=== PATIENT | female | born 1950 | race Caucasian/White ===

== ENCOUNTER 2016-12-22 12:16 | Emergency (ER) | payer OTHER ==
[~2016-12-22 12:16] MED LIST: /ACETCOD2T PO; /METO25TA PO; /SENOSTA PO; /WARF5TA PO; ALLO300T OR; ALLO300T2 PO; ASPI81TA85 PO; ATEN100T OR; ATOR1TAB21 PO; BUME2TAB PO; CALC0.5C OR; CALC1CAP31 PO; CORE25TA OR; CORE25TA PO; COUM1TAB17 PO; COUM2.5T11 PO; DIGO0.126 OR; DOCU10CA PO; DOCU10ELUD PO; DOXY-197 PO; HYDR-4267 PO; HYDR50TA PO; LASI20TA OR; LASI40TA OR; LASI40TA PO; LASI80TA OR; LIPI10TA OR; LOPR100T OR; LOVE1INJ SC; METO100T PO; PERCOCET PO; PRADAXA; PRED1TAB32 PO; SPIR25TA2 OR; TORS100T12 PO; TYLE325T5 PO; ULTR37.52 PO; VITAMIN D50000 UNT OR; ZARO2.5T OR; ZEST2.5T OR; ZETI10TA OR; ZETI10TA2 PO; nystatin powder; pradaxa PO; vit d PO
[2016-12-22 12:50] LABS: BASO % 0.3 % (0.0-1.0); EOS # 0.2 K/mm3 (0.0-0.50); EOS % 2.3 % (0.0-3.0); LARGE UNSTAINED CELL # 0.1 K/mm3 (0.0-0.4); LARGE UNSTAINED CELL % 1.2 % (0.0-4.0); LYMPH # 1.5 K/mm3 (1.5-4.5); LYMPH % 18.2 % (24.0-44.0); MEAN CORPUSCULAR HEMOGLOBIN 29.1 pg (27.0-33.0); MEAN CORPUSCULAR HGB CONC 32.7 g/dl (32.0-36.5); MEAN CORPUSCULAR VOLUME 89.2 fl (80.0-96.0); MONO # 0.4 K/mm3 (0.0-0.8); MONO % 4.7 % (0.0-5.0); NEUTROPHILS # 5.8 K/mm3 (1.8-7.7); NEUTROPHILS % 73.4 % (36.0-66.0); PLATELET COUNT, AUTOMATED 250 k/mm3 (150-450); RED CELL DISTRIBUTION WIDTH 14.7 % (11.5-14.5); WHITE BLOOD COUNT 7.9 K/mm3 (4.0-10.0)
[2016-12-22 13:21] LABS: ANION GAP 6 MEQ/L (8-16); BLOOD UREA NITROGEN 30 MG/DL (7-18); CARBON DIOXIDE LEVEL 29 MEQ/L (21-32); CHLORIDE LEVEL 105 MEQ/L (98-107); CREATININE FOR GFR 1.61 MG/DL (0.55-1.02); GLOMERULAR FILTRATION RATE 34.3 (>45); GLUCOSE, FASTING 104 MG/DL (80-110); POTASSIUM SERUM 4.1 MEQ/L (3.5-5.1); SODIUM LEVEL 140 MEQ/L (136-145)
[2016-12-22] MEDS ORDERED: MORPHINE 4 MG/ML 1ML SYRINGE As Ordered ONE (13:53)
[2016-12-22] MEDS ORDERED: ONDANSETRON 4MG/2ML VIAL (J2405) As Ordered ONE (13:53)
[2016-12-22] MEDS ORDERED: ASPIRIN 81 MG CHEW TABLET As Ordered ONE (13:53)
--- NOTE | 2016-12-22 14:00 | REP ---
Chest x-ray: Two views. History: Chest pain. Comparison study November 13, 2015. Findings: Moderate cardiomegaly is observed. Heart size is unchanged. The pulmonary vasculature is cephalized. Pleural angles are sharp. No evidence of pulmonary edema or pleural effusion seen. No infiltrate seen. Impression: Cardiomegaly with cephalized pulmonary vasculature consistent with mild CHF. No evidence of pulmonary edema or pleural effusion seen. Signed by Mega Echols MD 12/22/2016 02:35 P
--- NOTE | 2016-12-22 15:07 | REP ---
BILATERAL LOWER EXTREMITY DOPPLER VENOUS ULTRASOUND: Comparison: Right lower extremity of 11/18/2016, 12/26/2014. Technique: The deep venous system of the bilateral lower extremities is evaluated with kerr scale imaging, compression ultrasound, color imaging and duplex Doppler interrogation. Examination from the groin through the popliteal fossa into the proximal calf. Findings: There is full compressibility from the common femoral vein in the inguinal region through the popliteal vein on both sides. Color imaging confirms patency throughout the course of the deep venous system. There is respiratory variation and augmented flow at all levels. Impression: 1. No Doppler venous ultrasound evidence of DVT in the bilateral lower extremities. The exam was technically limited due to body habitus. Signed by Surya Chang MD 12/22/2016 04:28 P
[2016-12-22] MEDS ORDERED: FUROSEMIDE 40 MG/4 ML VIAL (J1940) As Ordered ONE (15:52)
--- NOTE | 2016-12-22 17:40 | EDDOCDS ---
Nurse's Notes [facility] Name: Odessa Ramos Age: 66 yrs Sex: Female : 1950 Arrival Date: 12/22/2016 Time: 12:16 Bed 17 Private MD: Peggy Irene Diagnosis: Chest pain, unspecified;Acute combined systolic (congestive) and diastolic (congestive) heart failure Presentation: 12/22 12:20 Presenting complaint: Patient states: states substernal chest pain radiating to back ml6 10, denies SOB. Aspirin was not taken prior to arrival. Adult Sepsis Screening: The patient does not have new or worsening altered mentation. Patient's respiratory rate is less than 22. Systolic blood pressure is greater than 100. Patient has a qSOFA score of 0- Negative Sepsis Screen. Suicide/Homicide risk assessment- the patient denies having any suicidal and/or homicidal ideations and does not present with any other emotional, behavioral or mental health complaints. Status: Patient is not a customer services supervisor or dependent. Transition of care: patient was not received from another setting of care. Red Flag criteria, patient assessed and taken directly to a bed. 12:20 Acuity: BRIANDA Level 2 ml6 12:20 Method Of Arrival: Walkin/Carried/Asstd ml6 Triage Assessment: 12:31 General: Appears in no apparent distress, Behavior is appropriate for age, cooperative. ml6 Pain: Location: chest Pain currently is 6 out of 10 on a pain scale. Pain does not radiate. Quality of pain is described as aching, Pain began 1 day ago Is continuous Alleviated by nothing. Aggravated by increased activity. HIV screening NA for this visit Offered previously. Cardiovascular: Capillary refill < 3 seconds is brisk in bilateral fingers toes Heart tones S1 S2 present Edema is 4+ to left midcalf, left ankle, left foot, left toes, right midcalf, right ankle, right foot and right toes Pulses are all present. 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 Respiratory: No deficits noted. Historical: - Allergies: no known allergies; - Home Meds: 1. atorvastatin 20 mg oral tab 1 tab once daily (Last dose: 12/22/2016 07:00) 2. calcitriol 0.5 mcg oral cap 2 caps once daily (Last dose: 12/22/2016 07:00) 3. Coumadin 5 mg Oral tab 1 tab once daily (Last dose: 12/21/2016 17:00) 4. metoprolol tartrate 100 mg Oral tab 1 tab 2 times per day (Last dose: 12/22/2016 07:00) 5. hydralazine 50 mg Oral tab 1 tab daily (Last dose: 12/22/2016 07:00) 6. Zetia 10 mg Oral tab 1 tab once daily (Last dose: 12/22/2016 07:00) 7. torsemide 20 mg oral tab 1 tab three times a day (Last dose: 12/22/2016 07:00) - PMHx: Angina; Atrial Fib; CVA; Gout; Hypercholesterolemia; Renal Failure w/o Dialysis; Hypertension; - PSHx: ; - Social history: Smoking status: Patient states was never smoker of tobacco. No barriers to communication noted, Speaks appropriately for age. - Family history: Not pertinent. - : The pt / caregiver states he / she is not on anticoagulants. Home medication list is obtained from the patient. - Exposure Risk Screening:: None identified. Screenin:54 Screening information is obtained from the patient. Fall risk: No risks identified. hs1 Assistance ADL's: requires no assistance with activities of daily living. Abuse/DV Screen: The patient / caregiver reports he/she is: not in a situation that causes fear, pain or injury. Nutritional screening: No deficits noted. home support is adequate. 17:38 Advance Directives: There is no active DNR order. hs1 Assessment: 12:51 General: Appears in no apparent distress, comfortable, Behavior is appropriate for age, hs1 cooperative. Pain: Location: mid-sternal area Pain currently is 6 out of 10 on a pain scale. Pain radiates to back and left arm. Neurological: Level of Consciousness is awake, alert, obeys commands, Oriented to person, place, time. Cardiovascular: Capillary refill is brisk Rhythm is irregular. Cardiovascular: Edema is 4+ to left midcalf, left ankle, left foot, left toes, right midcalf, right ankle, right foot and right toes. Respiratory: Airway is patent Respiratory effort is even, unlabored, Respiratory pattern is regular, symmetrical. Derm: Skin is pink, warm & dry. normal. 13:55 General: Appears in no apparent distress, comfortable, Behavior is appropriate for age, hs1 cooperative. Pain: Location: back and chest Pain currently is 6 out of 10 on a pain scale. Respiratory: No deficits noted. Airway is patent Respiratory effort is even, unlabored, Respiratory pattern is regular, symmetrical. GI: Abdomen is obese. Derm: Skin is pink, warm & dry. normal. 14:48 Reassessment: Patient appears in no apparent distress at this time. Patient states hs1 feeling better. Patient states symptoms have improved. Patient states pain now 2/10 and feels much better! Pt aware of waiting for ultrasound reports. . 15:49 General: Appears in no apparent distress, comfortable, Behavior is appropriate for age, hs1 cooperative. Pain: Location: back and chest. Neurological: Level of Consciousness is awake, alert, obeys commands, Oriented to person, place, time. Respiratory: Airway is patent Respiratory effort is even, unlabored, Respiratory pattern is regular, symmetrical. Derm: Skin is pink, warm & dry. normal. 17:38 General: Appears in no apparent distress, comfortable, Behavior is appropriate for age, hs1 cooperative. Neurological: Level of Consciousness is awake, alert, obeys commands, Oriented to person, place, time. GI: Abdomen is obese. Derm: Skin is pink, warm & dry. normal. Vital Signs: 12:18 BP 175 / 75; Pulse 98; Resp 18; Temp 97.3(O); Pulse Ox 99% on R/A; Weight 113.4 kg; dem1 Height 5 ft. 5 in. (165.10 cm); Pain 6/10; 13:58 Pulse 86 MON; Pulse Ox 95% ; hs1 13:58 BP 160 / 71 (auto/); hs1 14:27 Pulse 86 MON; Pulse Ox 97% ; hs1 14:27 BP 176 / 117 (auto/); hs1 14:42 Pulse 80 MON; Pulse Ox 96% ; hs1 14:42 BP 162 / 82 (auto/); hs1 14:57 Pulse 80 MON; Pulse Ox 96% ; hs1 14:57 BP 184 / 72 (auto/); hs1 15:12 Pulse 84 MON; Pulse Ox 95% ; hs1 15:12 BP 190 / 81 (auto/); hs1 15:27 Pulse 74 MON; Pulse Ox 97% ; hs1 15:27 BP 170 / 75 (auto/); hs1 15:42 BP 170 / 78 (auto/); hs1 15:43 Pulse 76 MON; Pulse Ox 97% ; hs1 15:57 BP 178 / 77 (auto/); hs1 15:57 Pulse 78 MON; Resp 18; Pulse Ox 97% ; hs1 17:15 BP 175 / 79 LA Sitting (auto/lg); Pulse 78; Resp 22; Temp 98.6(TE); Pulse Ox 98% on bnb R/A; Pain 0/10; 12:18 Body Mass Index 41.60 (113.40 kg, 165.10 cm) dem1 Vitals: 12:18 Log In Time: December 22, 2016 at 12:15. RN notified that patient meets Red Flag [facility] criteria. ED Course: 12:17 Patient visited by Joe Murillo. dem1 12:17 Patient moved to Waiting dem1 12:18 Peggy Irene is Private Physician. dem1 12:19 Iesha Woodard, LEANNA is Primary Nurse. ml6 12:19 Patient moved to 17 ml6 12:25 Inserted saline lock: 18 gauge in right antecubital area and blood collected. The hs1 patient tolerated the procedure well. 12:28 Triage Initiated ml6 12:30 The patient / caregiver is instructed regarding the plan of care and ED course. Cardiac hs1 monitor on. Pulse ox on. NIBP on. 12:31 Patient visited by Domo Kaur. l1 12:31 EKG done. (by ED staff). Reviewed by Richelle Arreguin MD. jml1 12:41 BNP Sent. hs1 12:41 BMP Sent. hs1 12:41 CBC with Diff Sent. hs1 12:41 CIP Sent. hs1 12:41 Troponin Sent. hs1 12:46 Richelle Arreguin MD is Attending Physician. ml 12:46 Patient visited by Richelle Arreguin MD. ml 14:01 Patient visited by Domo Kaur. jml1 14:03 Patient moved to Ultrasound hgl 14:26 Patient moved to 17 hgl 14:42 Chest, 2 View (pa\E\lat) Returned. EDMS 14:50 Patient visited by Iesha Woodard, LEANNA. hs1 15:22 Patient visited by Iesha Woodard RN. hs1 15:25 US Lower Extremities Bilateral R/O DVT Returned. EDMS 16:00 Patient visited by Iesha Woodard RN. hs1 16:54 US Lower Extremities Bilateral R/O DVT Returned. EDMS 17:04 Peggy Irene is Referral Physician. ml 17:04 Lashanda Flores is Referral Physician. ml 17:04 Shruthi Carcamo is Referral Physician. 17:13 [facility] Payment Agreement was scanned into [employer] and attached to record. gjb 17:15 Patient visited by Shayy Masters, JIMENEZ. bnb 17:39 Discontinued IV lock intact, bleeding controlled, pressure dressing applied, No hs1 redness/swelling at site. No procedures done that require assistance. Administered Medications: 13:55 Drug: Aspirin 324 mg [aspirin 81 mg chewable tablet (4 tabs)] Route: PO; hs1 13:55 Drug: Ondansetron 4 mg [ondansetron HCl 2 mg/mL intravenous solution (2 mL)] Route: hs1 IVP; Site: right antecubital; 13:55 Drug: morphine 4 mg [morphine 4 mg/mL intravenous cartridge (1 mL)] Route: IVP; Site: hs1 right antecubital; 15:58 Drug: Furosemide 80 mg [furosemide 10 mg/mL injection solution (8 mL)] Route: IVP; hs1 Site: right antecubital; Order Results: Lab Order: [facility]; SPEC'M 12/22/16 12:38 Test: GLUCOSE, FASTING; Value: 104; Range: 80-110; Units: MG/DL; Status: F Test: BLOOD UREA NITROGEN; Value: 30; Range: 7-18; Abnormal: Above high normal; Units: MG/DL; Status: F Test: CREATININE FOR GFR; Value: 1.61; Range: 0.55-1.02; Abnormal: Above high normal; Units: MG/DL; Status: F Test: GLOMERULAR FILTRATION RATE; Value: 34.3; Range: >45; Abnormal: Below low normal; Status: F Test: SODIUM LEVEL; Value: 140; Range: 136-145; Units: MEQ/L; Status: F Test: POTASSIUM SERUM; Value: 4.1; Range: 3.5-5.1; Units: MEQ/L; Status: F Test: CHLORIDE LEVEL; Value: 105; Range: 98-107; Units: MEQ/L; Status: F Test: CARBON DIOXIDE LEVEL; Value: 29; Range: 21-32; Units: MEQ/L; Status: F Test: ANION GAP; Value: 6; Range: 8-16; Abnormal: Below low normal; Units: MEQ/L; Status: F Test: CALCIUM LEVEL; Value: 9.0; Range: 8.8-10.2; Units: MG/DL; Status: F Test Note: ; Units are mL/min/1.73 m2 Chronic Kidney Disease Staging per NKF: Stage I & II GFR >=60 Normal to Mildly Decreased Stage III GFR 30-59 Moderately Decreased Stage IV GFR 15-29 Severely Decreased Stage V GFR <15 Very Little GFR Left ESRD GFR <15 on [facility] Lab Order: CBC with Diff; SPEC'M 12/22/16 12:38 Test: WHITE BLOOD COUNT; Value: 7.9; Range: 4.0-10.0; Units: K/mm3; Status: F Test: RED BLOOD COUNT; Value: 3.96; Range: 4.00-5.40; Abnormal: Below low normal; Units: M/mm3; Status: F Test: HEMOGLOBIN; Value: 11.5; Range: 12.0-16.0; Abnormal: Below low normal; Units: g/dl; Status: F Test: HEMATOCRIT; Value: 35.3; Range: 36.0-47.0; Abnormal: Below low normal; Units: %; Status: F Test: MEAN CORPUSCULAR VOLUME; Value: 89.2; Range: 80.0-96.0; Units: fl; Status: F Test: MEAN CORPUSCULAR HEMOGLOBIN; Value: 29.1; Range: 27.0-33.0; Units: pg; Status: F Test: MEAN CORPUSCULAR HGB CONC; Value: 32.7; Range: 32.0-36.5; Units: g/dl; Status: F Test: RED CELL DISTRIBUTION WIDTH; Value: 14.7; Range: 11.5-14.5; Abnormal: Above high normal; Units: %; Status: F Test: PLATELET COUNT, AUTOMATED; Value: 250; Range: 150-450; Units: k/mm3; Status: F Test: NEUTROPHILS %; Value: 73.4; Range: 36.0-66.0; Abnormal: Above high normal; Units: %; Status: F Test: LYMPH %; Value: 18.2; Range: 24.0-44.0; Abnormal: Below low normal; Units: %; Status: F Test: MONO %; Value: 4.7; Range: 0.0-5.0; Units: %; Status: F Test: EOS %; Value: 2.3; Range: 0.0-3.0; Units: %; Status: F Test: BASO %; Value: 0.3; Range: 0.0-1.0; Units: %; Status: F Test: LARGE UNSTAINED CELL %; Value: 1.2; Range: 0.0-4.0; Units: %; Status: F Test: NEUTROPHILS #; Value: 5.8; Range: 1.8-7.7; Units: K/mm3; Status: F Test: LYMPH #; Value: 1.5; Range: 1.5-4.5; Units: K/mm3; Status: F Test: MONO #; Value: 0.4; Range: 0.0-0.8; Units: K/mm3; Status: F Test: EOS #; Value: 0.2; Range: 0.0-0.50; Units: K/mm3; Status: F Test: BASO #; Value: 0.0; Range: 0.0-0.2; Units: K/mm3; Status: F Test: LARGE UNSTAINED CELL #; Value: 0.1; Range: 0.0-0.4; Units: K/mm3; Status: F Lab Order: CIP; SPEC'M 12/22/16 12:38 Test: CPK CREATINE PHOSPHOKINASE; Value: 102; Range: 26-192; Units: U/L; Status: F Test: CK-MB VALUE MASS; Value: 1.0; Range: 0.0-3.6; Units: NG/ML; Status: F Test: MB/CK RELATIVE INDEX; Value: 0.98; Range: < OR =4; Status: F Test Note: ; DIAGNOSIS CRITERIA MMB ng/ml Relative Index (RI) NON-AMI < or = 5 N/A DELUNA ZONE > 5 < or = 4 AMI > 5 > 4 Lab Order: Troponin; SPEC'M 12/22/16 12:38 Test: TROPONIN I; Value: < 0.02; Range: < 0.10; Units: NG/ML; Status: F Test Note: ; Troponin I Reference Interval for Siem[employer] [place] LOCI: 99th Percentile= 0.00-0.045 ng/ml Risk Stratification: <= 0.10 ng/ml Decreased Risk for Adverse Clinical Events. 0.10-1.50 ng/ml Increased Risk for Adverse Clinical Events. Evaluation of additional criterion and/or repeat testing in 2-6 hours is suggested to rule out myocardial damage. >= 1.50 ng/ml Indicative of Myocardial Injury. Lab Order: BNP; SPEC'M 12/22/16 12:38 Test: BRAIN NATRIURETIC PEPTIDE; Value: 389; Range: <100; Abnormal: Above high normal; Units: PG/ML; Status: F Lab Order: D-Dimer Quant; SPEC'M 12/22/16 12:38 Test: D-DIMER QUANT; Value: 490.6; Range: <500; Units: ng/ml; Status: F Radiology Order: Chest, 2 View (pa\E\lat) Test: Chest, 2 View (pa\E\lat) REASON FOR EXAMINATION: Chest Pain; Chest x-ray: Two views.; ; History: Chest pain.; ; Comparison study November 13, 2015.; ; Findings: Moderate cardiomegaly is observed. Heart size is unchanged. The; pulmonary vasculature is cephalized. Pleural angles are sharp. No evidence of; pulmonary edema or pleural effusion seen. No infiltrate seen.; ; Impression:; ; Cardiomegaly with cephalized pulmonary vasculature consistent with mild CHF. No; evidence of pulmonary edema or pleural effusion seen.; ; ; Signed by; Mega Echols MD 12/22/2016 02:35 P; Radiology Order: US Lower Extremities Bilateral R/O DVT Test: US Lower Extremities Bilateral R/O DVT REASON FOR EXAMINATION: r/o dvt. unablet o do cta - chest pain; BILATERAL LOWER EXTREMITY DOPPLER VENOUS ULTRASOUND:; ; Comparison: Right lower extremity of 11/18/2016, 12/26/2014.; ; Technique: The deep venous system of the bilateral lower extremities is; evaluated with deluna scale imaging, compression ultrasound, color imaging and; duplex Doppler interrogation. Examination from the groin through the popliteal; fossa into the proximal calf.; ; Findings: There is full compressibility from the common femoral vein in the; inguinal region through the popliteal vein on both sides. Color imaging confirms; patency throughout the course of the deep venous system. There is respiratory; variation and augmented flow at all levels.; ; Impression:; ; 1. No Doppler venous ultrasound evidence of DVT in the bilateral lower; extremities. The exam was technically limited due to body habitus.; ; ; Signed by; Surya Chang MD 12/22/2016 04:28 P; Outcome: 17:04 Discharge ordered by Provider. 17:39 Discharge Assessment: Patient awake, alert and oriented x 3. No cognitive and/or hs1 functional deficits noted. Patient verbalized understanding of disposition instructions. patient administered narcotics - no. The following High Risk Discharge criteria are identified: None. Discharged to home ambulatory, with friend. Condition: stable. Instructed on discharge instructions, follow up and referral plans. medication usage, Demonstrated understanding of instructions, medications, Pt was receptive of discharge instructions/ teaching. Ultrasound Study completed. Property sent home with patient. 17:39 Patient left the ED. hs1 Signatures: Dispatcher [employer] EDMS Richelle Arreguin MD MD ml Jae Fairchild, RN RN ml6 Iesha Woodard, LEANNA RN hs1 Domo Kaur Demeishia dem1 Anand Lemus Gabriela gjb Becker, Brittney, FIELD ORGANIZER FIELD ORGANIZER bnb MTDD
--- NOTE | 2016-12-22 17:40 | EDDOCDS ---
Physician Documentation [facility] Name: Odessa Ramos Age: 66 yrs Sex: Female : 1950 Arrival Date: 12/22/2016 Time: 12:16 Bed 17 Private MD: Peggy Irene Disposition: 12/22/16 17:04 Discharged to Home/Self Care. Impression: Chest pain, unspecified, Acute combined systolic (congestive) and diastolic (congestive) heart failure. - Condition is Stable. - Discharge Instructions: Nonspecific Chest Pain, Heart Failure. - Medication Reconciliation, Local Pharmacy Hours form. - Follow up: Peggy Irene; When: 1 - 2 days. Follow up: Lashanda Flores; When: Call to arrange an appointment. Follow up: Shruthi Carcamo; When: Call to arrange an appointment. - Problem is an acute exacerbation. - Symptoms have improved. - Notes: call to make follow up appts melisa Dr Sandra Harkins and Dr. Feldman (nephrology). Return if worsening symptoms. Per Dr. Flores - increase toresmide to 40 mg in morning (2 tablets) and 40 mg at noon (2 pills). Historical: - Allergies: no known allergies; - Home Meds: 1. atorvastatin 20 mg oral tab 1 tab once daily (Last dose: 12/22/2016 07:00) 2. calcitriol 0.5 mcg oral cap 2 caps once daily (Last dose: 12/22/2016 07:00) 3. Coumadin 5 mg Oral tab 1 tab once daily (Last dose: 12/21/2016 17:00) 4. metoprolol tartrate 100 mg Oral tab 1 tab 2 times per day (Last dose: 12/22/2016 07:00) 5. hydralazine 50 mg Oral tab 1 tab daily (Last dose: 12/22/2016 07:00) 6. Zetia 10 mg Oral tab 1 tab once daily (Last dose: 12/22/2016 07:00) 7. torsemide 20 mg oral tab 1 tab three times a day (Last dose: 12/22/2016 07:00) - PMHx: Angina; Atrial Fib; CVA; Gout; Hypercholesterolemia; Renal Failure w/o Dialysis; Hypertension; - PSHx: ; - Social history: Smoking status: Patient states was never smoker of tobacco. No barriers to communication noted, Speaks appropriately for age. - Family history: Not pertinent. - : The pt / caregiver states he / she is not on anticoagulants. Home medication list is obtained from the patient. - Exposure Risk Screening:: None identified. Vital Signs: 12/22 12:18 BP 175 / 75; Pulse 98; Resp 18; Temp 97.3(O); Pulse Ox 99% on R/A; Weight 113.4 kg / dem1 250 lbs; Height 5 ft. 5 in. (165.10 cm); Pain 6/10; 13:58 Pulse 86 MON; Pulse Ox 95% ; hs1 13:58 BP 160 / 71 (auto/); hs1 14:27 Pulse 86 MON; Pulse Ox 97% ; hs1 14:27 BP 176 / 117 (auto/); hs1 14:42 Pulse 80 MON; Pulse Ox 96% ; hs1 14:42 BP 162 / 82 (auto/); hs1 14:57 Pulse 80 MON; Pulse Ox 96% ; hs1 14:57 BP 184 / 72 (auto/); hs1 15:12 Pulse 84 MON; Pulse Ox 95% ; hs1 15:12 BP 190 / 81 (auto/); hs1 15:27 Pulse 74 MON; Pulse Ox 97% ; hs1 15:27 BP 170 / 75 (auto/); hs1 15:42 BP 170 / 78 (auto/); hs1 15:43 Pulse 76 MON; Pulse Ox 97% ; hs1 15:57 BP 178 / 77 (auto/); hs1 15:57 Pulse 78 MON; Resp 18; Pulse Ox 97% ; hs1 17:15 BP 175 / 79 LA Sitting (auto/lg); Pulse 78; Resp 22; Temp 98.6(TE); Pulse Ox 98% on bnb R/A; Pain 0/10; 12:18 Body Mass Index 41.60 (113.40 kg, 165.10 cm) dem1 MDM: 12:18 Turn Sewer/Pulse Ox/q 30 min VS ordered. ml6 12:18 Oxygen at 2L/min via NC ordered. ml6 12:18 IV Saline Lock ordered. ml6 12:19 BMP Ordered. EDMS 12:19 CBC with Diff Ordered. EDMS 12:19 CIP Ordered. EDMS 12:19 Troponin Ordered. EDMS 12:19 Chest, 2 View (pa\E\lat) Ordered. EDMS 12:20 ECG WITH READING ER PHYS+CARDIAG ordered. EDMS 12:28 BNP Ordered. EDMS 13:02 Aspirin Chewable Tablet 324 mg PO once ordered. ml 13:02 Ondansetron 4 mg IVP once ordered. ml 13:02 morphine 4 mg IVP once ordered. ml 13:02 D-Dimer Quant Ordered. EDMS 13:35 BMP Reviewed. ml 13:35 CBC with Diff Reviewed. ml 13:35 BNP Reviewed. ml 13:35 CIP Reviewed. ml 13:35 Troponin Reviewed. ml 13:35 D-Dimer Quant Reviewed. ml 13:37 US Lower Extremities Bilateral R/O DVT Ordered. EDMS 15:44 Chest, 2 View (pa\E\lat) Reviewed. ml 15:44 US Lower Extremities Bilateral R/O DVT Reviewed. ml 15:51 Furosemide 80 mg IVP once ordered. ml 17:06 Financial registration complete. eulalia 17:13 [facility] Payment Agreement was scanned into [employer] and attached to record. eulalia Administered Medications: 13:55 Drug: Aspirin 324 mg [aspirin 81 mg chewable tablet (4 tabs)] Route: PO; hs1 13:55 Drug: Ondansetron 4 mg [ondansetron HCl 2 mg/mL intravenous solution (2 mL)] Route: hs1 IVP; Site: right antecubital; 13:55 Drug: morphine 4 mg [morphine 4 mg/mL intravenous cartridge (1 mL)] Route: IVP; Site: hs1 right antecubital; 15:58 Drug: Furosemide 80 mg [furosemide 10 mg/mL injection solution (8 mL)] Route: IVP; hs1 Site: right antecubital; Signatures: Dispatcher [employer] EDRichelle Cerna MD MD ml Jae Fairchild RN RN ml6 Iesha Woodard RN RN hs1 Le Torres The chart was reviewed and I authenticate all verbal orders and agree with the evaluation and treatment provided.Attachments: 17:13 [facility] Payment Agreement eulalia MTDD
--- NOTE | 2016-12-22 20:07 | ECGEPIP ---
Stationary ECG Study 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
--- NOTE | 2016-12-24 18:40 | EDDOCDS ---
Physician Documentation [facility] Name: Odessa Ramos Age: 66 yrs Sex: Female : 1950 Arrival Date: 12/22/2016 Time: 12:16 Bed 17 Private MD: Peggy Irene Disposition: 12/22/16 17:04 Discharged to Home/Self Care. Impression: Chest pain, unspecified, Acute combined systolic (congestive) and diastolic (congestive) heart failure. - Condition is Stable. - Discharge Instructions: Nonspecific Chest Pain, Heart Failure. - Medication Reconciliation, Local Pharmacy Hours form. - Follow up: Peggy Irene; When: 1 - 2 days. Follow up: Lashanda Flores; When: Call to arrange an appointment. Follow up: Shruthi Carcamo; When: Call to arrange an appointment. - Problem is an acute exacerbation. - Symptoms have improved. - Notes: call to make follow up appts melisa Dr Sandra Harkins and Dr. Feldman (nephrology). Return if worsening symptoms. Per Dr. Flores - increase toresmide to 40 mg in morning (2 tablets) and 40 mg at noon (2 pills). Historical: - Allergies: no known allergies; - Home Meds: 1. atorvastatin 20 mg oral tab 1 tab once daily (Last dose: 12/22/2016 07:00) 2. calcitriol 0.5 mcg oral cap 2 caps once daily (Last dose: 12/22/2016 07:00) 3. Coumadin 5 mg Oral tab 1 tab once daily (Last dose: 12/21/2016 17:00) 4. metoprolol tartrate 100 mg Oral tab 1 tab 2 times per day (Last dose: 12/22/2016 07:00) 5. hydralazine 50 mg Oral tab 1 tab daily (Last dose: 12/22/2016 07:00) 6. Zetia 10 mg Oral tab 1 tab once daily (Last dose: 12/22/2016 07:00) 7. torsemide 20 mg oral tab 1 tab three times a day (Last dose: 12/22/2016 07:00) - PMHx: Angina; Atrial Fib; CVA; Gout; Hypercholesterolemia; Renal Failure w/o Dialysis; Hypertension; - PSHx: ; - Social history: Smoking status: Patient states was never smoker of tobacco. No barriers to communication noted, Speaks appropriately for age. - Family history: Not pertinent. - : The pt / caregiver states he / she is not on anticoagulants. Home medication list is obtained from the patient. - Exposure Risk Screening:: None identified. Vital Signs: 12/22 12:18 BP 175 / 75; Pulse 98; Resp 18; Temp 97.3(O); Pulse Ox 99% on R/A; Weight 113.4 kg / dem1 250 lbs; Height 5 ft. 5 in. (165.10 cm); Pain 6/10; 13:58 Pulse 86 MON; Pulse Ox 95% ; hs1 13:58 BP 160 / 71 (auto/); hs1 14:27 Pulse 86 MON; Pulse Ox 97% ; hs1 14:27 BP 176 / 117 (auto/); hs1 14:42 Pulse 80 MON; Pulse Ox 96% ; hs1 14:42 BP 162 / 82 (auto/); hs1 14:57 Pulse 80 MON; Pulse Ox 96% ; hs1 14:57 BP 184 / 72 (auto/); hs1 15:12 Pulse 84 MON; Pulse Ox 95% ; hs1 15:12 BP 190 / 81 (auto/); hs1 15:27 Pulse 74 MON; Pulse Ox 97% ; hs1 15:27 BP 170 / 75 (auto/); hs1 15:42 BP 170 / 78 (auto/); hs1 15:43 Pulse 76 MON; Pulse Ox 97% ; hs1 15:57 BP 178 / 77 (auto/); hs1 15:57 Pulse 78 MON; Resp 18; Pulse Ox 97% ; hs1 17:15 BP 175 / 79 LA Sitting (auto/lg); Pulse 78; Resp 22; Temp 98.6(TE); Pulse Ox 98% on bnb R/A; Pain 0/10; 12:18 Body Mass Index 41.60 (113.40 kg, 165.10 cm) dem1 MDM: 12:18 Senior Adults Director/Pulse Ox/q 30 min VS ordered. ml6 12:18 Oxygen at 2L/min via NC ordered. ml6 12:18 IV Saline Lock ordered. ml6 12:19 BMP Ordered. EDMS 12:19 CBC with Diff Ordered. EDMS 12:19 CIP Ordered. EDMS 12:19 Troponin Ordered. EDMS 12:19 Chest, 2 View (pa\E\lat) Ordered. EDMS 12:20 ECG WITH READING ER PHYS+CARDIAG ordered. EDMS 12:28 BNP Ordered. EDMS 13:02 Aspirin Chewable Tablet 324 mg PO once ordered. ml 13:02 Ondansetron 4 mg IVP once ordered. ml 13:02 morphine 4 mg IVP once ordered. ml 13:02 D-Dimer Quant Ordered. EDMS 13:35 BMP Reviewed. ml 13:35 CBC with Diff Reviewed. ml 13:35 BNP Reviewed. ml 13:35 CIP Reviewed. ml 13:35 Troponin Reviewed. ml 13:35 D-Dimer Quant Reviewed. ml 13:37 US Lower Extremities Bilateral R/O DVT Ordered. EDMS 15:44 Chest, 2 View (pa\E\lat) Reviewed. ml 15:44 US Lower Extremities Bilateral R/O DVT Reviewed. ml 15:51 Furosemide 80 mg IVP once ordered. ml 17:06 Financial registration complete. [facility] 17:13 [facility] Payment Agreement was scanned into [employer] and attached to record. gjb 02 10:10 T-Sheet-- Draft Copy was scanned into [employer] and attached to record. gb 10:10 ECG/EKG was scanned into [employer] and attached to record. gb 10:11 Radiology Report was scanned into [employer] and attached to record. gb Administered Medications: 12/22 13:55 Drug: Aspirin 324 mg [aspirin 81 mg chewable tablet (4 tabs)] Route: PO; hs1 13:55 Drug: Ondansetron 4 mg [ondansetron HCl 2 mg/mL intravenous solution (2 mL)] Route: hs1 IVP; Site: right antecubital; 13:55 Drug: morphine 4 mg [morphine 4 mg/mL intravenous cartridge (1 mL)] Route: IVP; Site: hs1 right antecubital; 15:58 Drug: Furosemide 80 mg [furosemide 10 mg/mL injection solution (8 mL)] Route: IVP; hs1 Site: right antecubital; Signatures: Dispatcher [employer] EDWY Richelle Arreguin MD MD ml Barnhardt, Gloria, Reg Reg Jae Cotton RN RN ml6 Iesha Woodard RN RN hs1 Le Torres The chart was reviewed and I authenticate all verbal orders and agree with the evaluation and treatment provided.Attachments: 17:13 [facility] Payment Agreement gjb 12/23 10:10 T-Sheet-- Draft Copy gb 10:10 ECG/EKG gb Chart Complete MTDD
--- NOTE | 2016-12-24 18:40 | EDDOCDS ---
Physician Documentation [facility] Name: Odessa Ramos Age: 66 yrs Sex: Female : 1950 Arrival Date: 12/22/2016 Time: 12:16 Bed 17 Private MD: Peggy Irene Disposition: 12/22/16 17:04 Discharged to Home/Self Care. Impression: Chest pain, unspecified, Acute combined systolic (congestive) and diastolic (congestive) heart failure. - Condition is Stable. - Discharge Instructions: Nonspecific Chest Pain, Heart Failure. - Medication Reconciliation, Local Pharmacy Hours form. - Follow up: Peggy Irene; When: 1 - 2 days. Follow up: Lashadna Flores; When: Call to arrange an appointment. Follow up: Shruthi Carcamo; When: Call to arrange an appointment. - Problem is an acute exacerbation. - Symptoms have improved. - Notes: call to make follow up appts melisa Dr Sandra Harkins and Dr. Feldman (nephrology). Return if worsening symptoms. Per Dr. Flores - increase toresmide to 40 mg in morning (2 tablets) and 40 mg at noon (2 pills). Historical: - Allergies: no known allergies; - Home Meds: 1. atorvastatin 20 mg oral tab 1 tab once daily (Last dose: 12/22/2016 07:00) 2. calcitriol 0.5 mcg oral cap 2 caps once daily (Last dose: 12/22/2016 07:00) 3. Coumadin 5 mg Oral tab 1 tab once daily (Last dose: 12/21/2016 17:00) 4. metoprolol tartrate 100 mg Oral tab 1 tab 2 times per day (Last dose: 12/22/2016 07:00) 5. hydralazine 50 mg Oral tab 1 tab daily (Last dose: 12/22/2016 07:00) 6. Zetia 10 mg Oral tab 1 tab once daily (Last dose: 12/22/2016 07:00) 7. torsemide 20 mg oral tab 1 tab three times a day (Last dose: 12/22/2016 07:00) - PMHx: Angina; Atrial Fib; CVA; Gout; Hypercholesterolemia; Renal Failure w/o Dialysis; Hypertension; - PSHx: ; - Social history: Smoking status: Patient states was never smoker of tobacco. No barriers to communication noted, Speaks appropriately for age. - Family history: Not pertinent. - : The pt / caregiver states he / she is not on anticoagulants. Home medication list is obtained from the patient. - Exposure Risk Screening:: None identified. Vital Signs: 12/22 12:18 BP 175 / 75; Pulse 98; Resp 18; Temp 97.3(O); Pulse Ox 99% on R/A; Weight 113.4 kg / dem1 250 lbs; Height 5 ft. 5 in. (165.10 cm); Pain 6/10; 13:58 Pulse 86 MON; Pulse Ox 95% ; hs1 13:58 BP 160 / 71 (auto/); hs1 14:27 Pulse 86 MON; Pulse Ox 97% ; hs1 14:27 BP 176 / 117 (auto/); hs1 14:42 Pulse 80 MON; Pulse Ox 96% ; hs1 14:42 BP 162 / 82 (auto/); hs1 14:57 Pulse 80 MON; Pulse Ox 96% ; hs1 14:57 BP 184 / 72 (auto/); hs1 15:12 Pulse 84 MON; Pulse Ox 95% ; hs1 15:12 BP 190 / 81 (auto/); hs1 15:27 Pulse 74 MON; Pulse Ox 97% ; hs1 15:27 BP 170 / 75 (auto/); hs1 15:42 BP 170 / 78 (auto/); hs1 15:43 Pulse 76 MON; Pulse Ox 97% ; hs1 15:57 BP 178 / 77 (auto/); hs1 15:57 Pulse 78 MON; Resp 18; Pulse Ox 97% ; hs1 17:15 BP 175 / 79 LA Sitting (auto/lg); Pulse 78; Resp 22; Temp 98.6(TE); Pulse Ox 98% on bnb R/A; Pain 0/10; 12:18 Body Mass Index 41.60 (113.40 kg, 165.10 cm) dem1 MDM: 12:18 Photographic Engineer/Pulse Ox/q 30 min VS ordered. ml6 12:18 Oxygen at 2L/min via NC ordered. ml6 12:18 IV Saline Lock ordered. ml6 12:19 BMP Ordered. EDMS 12:19 CBC with Diff Ordered. EDMS 12:19 CIP Ordered. EDMS 12:19 Troponin Ordered. EDMS 12:19 Chest, 2 View (pa\E\lat) Ordered. EDMS 12:20 ECG WITH READING ER PHYS+CARDIAG ordered. EDMS 12:28 BNP Ordered. EDMS 13:02 Aspirin Chewable Tablet 324 mg PO once ordered. ml 13:02 Ondansetron 4 mg IVP once ordered. ml 13:02 morphine 4 mg IVP once ordered. ml 13:02 D-Dimer Quant Ordered. EDMS 13:35 BMP Reviewed. ml 13:35 CBC with Diff Reviewed. ml 13:35 BNP Reviewed. ml 13:35 CIP Reviewed. ml 13:35 Troponin Reviewed. ml 13:35 D-Dimer Quant Reviewed. ml 13:37 US Lower Extremities Bilateral R/O DVT Ordered. EDMS 15:44 Chest, 2 View (pa\E\lat) Reviewed. ml 15:44 US Lower Extremities Bilateral R/O DVT Reviewed. ml 15:51 Furosemide 80 mg IVP once ordered. ml 17:06 Financial registration complete. [facility] 17:13 [facility] Payment Agreement was scanned into [employer] and attached to record. gjb 02 10:10 T-Sheet-- Draft Copy was scanned into [employer] and attached to record. gb 10:10 ECG/EKG was scanned into [employer] and attached to record. gb 10:11 Radiology Report was scanned into [employer] and attached to record. gb Administered Medications: 12/22 13:55 Drug: Aspirin 324 mg [aspirin 81 mg chewable tablet (4 tabs)] Route: PO; hs1 13:55 Drug: Ondansetron 4 mg [ondansetron HCl 2 mg/mL intravenous solution (2 mL)] Route: hs1 IVP; Site: right antecubital; 13:55 Drug: morphine 4 mg [morphine 4 mg/mL intravenous cartridge (1 mL)] Route: IVP; Site: hs1 right antecubital; 15:58 Drug: Furosemide 80 mg [furosemide 10 mg/mL injection solution (8 mL)] Route: IVP; hs1 Site: right antecubital; Signatures: Dispatcher [employer] EDAR Richelle Arreguin MD MD ml Barnhardt, Gloria, Reg Reg Jae Cotton RN RN ml6 Iesha Woodard RN RN hs1 Le Torres The chart was reviewed and I authenticate all verbal orders and agree with the evaluation and treatment provided.Attachments: 17:13 [facility] Payment Agreement gjb 12/23 10:10 T-Sheet-- Draft Copy gb 10:10 ECG/EKG gb Chart Complete MTDD
--- NOTE | 2016-12-24 18:40 | EDDOCDS ---
Nurse's Notes [facility] Name: Wilda Ramos Age: 66 yrs Sex: Female : 1950 Arrival Date: 12/22/2016 Time: 12:16 Bed 17 Private MD: Peggy Irene Diagnosis: Chest pain, unspecified;Acute combined systolic (congestive) and diastolic (congestive) heart failure Presentation: 12/22 12:20 Presenting complaint: Patient states: states substernal chest pain radiating to back ml6 10, denies SOB. Aspirin was not taken prior to arrival. Adult Sepsis Screening: The patient does not have new or worsening altered mentation. Patient's respiratory rate is less than 22. Systolic blood pressure is greater than 100. Patient has a qSOFA score of 0- Negative Sepsis Screen. Suicide/Homicide risk assessment- the patient denies having any suicidal and/or homicidal ideations and does not present with any other emotional, behavioral or mental health complaints. 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 Transition of care: patient was not received from another setting of care. Red Flag criteria, patient assessed and taken directly to a bed. 12:20 Acuity: BRIANDA Level 2 ml6 12:20 Method Of Arrival: Walkin/Carried/Asstd ml6 Triage Assessment: 12:31 General: Appears in no apparent distress, Behavior is appropriate for age, cooperative. ml6 Pain: Location: chest Pain currently is 6 out of 10 on a pain scale. Pain does not radiate. Quality of pain is described as aching, Pain began 1 day ago Is continuous Alleviated by nothing. Aggravated by increased activity. HIV screening NA for this visit Offered previously. Cardiovascular: Capillary refill < 3 seconds is brisk in bilateral fingers toes Heart tones S1 S2 present Edema is 4+ to left midcalf, left ankle, left foot, left toes, right midcalf, right ankle, right foot and right toes Pulses are all present. 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 Respiratory: No deficits noted. Historical: - Allergies: no known allergies; - Home Meds: 1. atorvastatin 20 mg oral tab 1 tab once daily (Last dose: 12/22/2016 07:00) 2. calcitriol 0.5 mcg oral cap 2 caps once daily (Last dose: 12/22/2016 07:00) 3. Coumadin 5 mg Oral tab 1 tab once daily (Last dose: 12/21/2016 17:00) 4. metoprolol tartrate 100 mg Oral tab 1 tab 2 times per day (Last dose: 12/22/2016 07:00) 5. hydralazine 50 mg Oral tab 1 tab daily (Last dose: 12/22/2016 07:00) 6. Zetia 10 mg Oral tab 1 tab once daily (Last dose: 12/22/2016 07:00) 7. torsemide 20 mg oral tab 1 tab three times a day (Last dose: 12/22/2016 07:00) - PMHx: Angina; Atrial Fib; CVA; Gout; Hypercholesterolemia; Renal Failure w/o Dialysis; Hypertension; - PSHx: ; - Social history: Smoking status: Patient states was never smoker of tobacco. No barriers to communication noted, Speaks appropriately for age. - Family history: Not pertinent. - : The pt / caregiver states he / she is not on anticoagulants. Home medication list is obtained from the patient. - Exposure Risk Screening:: None identified. Screenin:54 Screening information is obtained from the patient. Fall risk: No risks identified. hs1 Assistance ADL's: requires no assistance with activities of daily living. Abuse/DV Screen: The patient / caregiver reports he/she is: not in a situation that causes fear, pain or injury. Nutritional screening: No deficits noted. home support is adequate. 17:38 Advance Directives: There is no active DNR order. hs1 Assessment: 12:51 General: Appears in no apparent distress, comfortable, Behavior is appropriate for age, hs1 cooperative. Pain: Location: mid-sternal area Pain currently is 6 out of 10 on a pain scale. Pain radiates to back and left arm. Neurological: Level of Consciousness is awake, alert, obeys commands, Oriented to person, place, time. Cardiovascular: Capillary refill is brisk Rhythm is irregular. Cardiovascular: Edema is 4+ to left midcalf, left ankle, left foot, left toes, right midcalf, right ankle, right foot and right toes. Respiratory: Airway is patent Respiratory effort is even, unlabored, Respiratory pattern is regular, symmetrical. Derm: Skin is pink, warm & dry. normal. 13:55 General: Appears in no apparent distress, comfortable, Behavior is appropriate for age, hs1 cooperative. Pain: Location: back and chest Pain currently is 6 out of 10 on a pain scale. Respiratory: No deficits noted. Airway is patent Respiratory effort is even, unlabored, Respiratory pattern is regular, symmetrical. GI: Abdomen is obese. Derm: Skin is pink, warm & dry. normal. 14:48 Reassessment: Patient appears in no apparent distress at this time. Patient states hs1 feeling better. Patient states symptoms have improved. Patient states pain now 2/10 and feels much better! Pt aware of waiting for ultrasound reports. . 15:49 General: Appears in no apparent distress, comfortable, Behavior is appropriate for age, hs1 cooperative. Pain: Location: back and chest. Neurological: Level of Consciousness is awake, alert, obeys commands, Oriented to person, place, time. Respiratory: Airway is patent Respiratory effort is even, unlabored, Respiratory pattern is regular, symmetrical. Derm: Skin is pink, warm & dry. normal. 17:38 General: Appears in no apparent distress, comfortable, Behavior is appropriate for age, hs1 cooperative. Neurological: Level of Consciousness is awake, alert, obeys commands, Oriented to person, place, time. GI: Abdomen is obese. Derm: Skin is pink, warm & dry. normal. Vital Signs: 12:18 BP 175 / 75; Pulse 98; Resp 18; Temp 97.3(O); Pulse Ox 99% on R/A; Weight 113.4 kg; dem1 Height 5 ft. 5 in. (165.10 cm); Pain 6/10; 13:58 Pulse 86 MON; Pulse Ox 95% ; hs1 13:58 BP 160 / 71 (auto/); hs1 14:27 Pulse 86 MON; Pulse Ox 97% ; hs1 14:27 BP 176 / 117 (auto/); hs1 14:42 Pulse 80 MON; Pulse Ox 96% ; hs1 14:42 BP 162 / 82 (auto/); hs1 14:57 Pulse 80 MON; Pulse Ox 96% ; hs1 14:57 BP 184 / 72 (auto/); hs1 15:12 Pulse 84 MON; Pulse Ox 95% ; hs1 15:12 BP 190 / 81 (auto/); hs1 15:27 Pulse 74 MON; Pulse Ox 97% ; hs1 15:27 BP 170 / 75 (auto/); hs1 15:42 BP 170 / 78 (auto/); hs1 15:43 Pulse 76 MON; Pulse Ox 97% ; hs1 15:57 BP 178 / 77 (auto/); hs1 15:57 Pulse 78 MON; Resp 18; Pulse Ox 97% ; hs1 17:15 BP 175 / 79 LA Sitting (auto/lg); Pulse 78; Resp 22; Temp 98.6(TE); Pulse Ox 98% on bnb R/A; Pain 0/10; 12:18 Body Mass Index 41.60 (113.40 kg, 165.10 cm) dem1 Vitals: 12:18 Log In Time: December 22, 2016 at 12:15. RN notified that patient meets Red Flag [facility] criteria. ED Course: 12:17 Patient visited by Joe Murillo. dem1 12:17 Patient moved to Waiting dem1 12:18 Peggy Irene is Private Physician. dem1 12:19 Iesha Woodard, LEANNA is Primary Nurse. ml6 12:19 Patient moved to 17 ml6 12:25 Inserted saline lock: 18 gauge in right antecubital area and blood collected. The hs1 patient tolerated the procedure well. 12:28 Triage Initiated ml6 12:30 The patient / caregiver is instructed regarding the plan of care and ED course. Cardiac hs1 monitor on. Pulse ox on. NIBP on. 12:31 Patient visited by Domo Kaur. l1 12:31 EKG done. (by ED staff). Reviewed by Richelle Arreguin MD. jml1 12:41 BNP Sent. hs1 12:41 BMP Sent. hs1 12:41 CBC with Diff Sent. hs1 12:41 CIP Sent. hs1 12:41 Troponin Sent. hs1 12:46 Richelle Arreguin MD is Attending Physician. ml 12:46 Patient visited by Richelle Arreguin MD. ml 14:01 Patient visited by Domo Kaur. jml1 14:03 Patient moved to Ultrasound hgl 14:26 Patient moved to 17 hgl 14:42 Chest, 2 View (pa\E\lat) Returned. EDMS 14:50 Patient visited by Iesha Woodard, LEANNA. hs1 15:22 Patient visited by Iesha Woodard RN. hs1 15:25 US Lower Extremities Bilateral R/O DVT Returned. EDMS 16:00 Patient visited by Iesha Woodard RN. hs1 16:54 US Lower Extremities Bilateral R/O DVT Returned. EDMS 17:04 Peggy Irene is Referral Physician. ml 17:04 Lashanda Flores is Referral Physician. ml 17:04 Shruthi Carcamo is Referral Physician. ml 17:13 [facility] Payment Agreement was scanned into [employer] and attached to record. gjb 17:15 Patient visited by Shayy Masters, JIMENEZ. bnb 17:39 Discontinued IV lock intact, bleeding controlled, pressure dressing applied, No hs1 redness/swelling at site. No procedures done that require assistance. 20:54 EKG-ADULT Returned. EDMS 0207 10:10 T-Sheet-- Draft Copy was scanned into [employer] and attached to record. gb 10:10 ECG/EKG was scanned into [employer] and attached to record. gb 10:11 Radiology Report was scanned into [employer] and attached to record. gb Administered Medications: 12/22 13:55 Drug: Aspirin 324 mg [aspirin 81 mg chewable tablet (4 tabs)] Route: PO; hs1 13:55 Drug: Ondansetron 4 mg [ondansetron HCl 2 mg/mL intravenous solution (2 mL)] Route: hs1 IVP; Site: right antecubital; 13:55 Drug: morphine 4 mg [morphine 4 mg/mL intravenous cartridge (1 mL)] Route: IVP; Site: hs1 right antecubital; 15:58 Drug: Furosemide 80 mg [furosemide 10 mg/mL injection solution (8 mL)] Route: IVP; hs1 Site: right antecubital; Order Results: Lab Order: BERNIE; SPEC'M 12/22/16 12:38 Test: GLUCOSE, FASTING; Value: 104; Range: 80-110; Units: MG/DL; Status: F Test: BLOOD UREA NITROGEN; Value: 30; Range: 7-18; Abnormal: Above high normal; Units: MG/DL; Status: F Test: CREATININE FOR GFR; Value: 1.61; Range: 0.55-1.02; Abnormal: Above high normal; Units: MG/DL; Status: F Test: GLOMERULAR FILTRATION RATE; Value: 34.3; Range: >45; Abnormal: Below low normal; Status: F Test: SODIUM LEVEL; Value: 140; Range: 136-145; Units: MEQ/L; Status: F Test: POTASSIUM SERUM; Value: 4.1; Range: 3.5-5.1; Units: MEQ/L; Status: F Test: CHLORIDE LEVEL; Value: 105; Range: 98-107; Units: MEQ/L; Status: F Test: CARBON DIOXIDE LEVEL; Value: 29; Range: 21-32; Units: MEQ/L; Status: F Test: ANION GAP; Value: 6; Range: 8-16; Abnormal: Below low normal; Units: MEQ/L; Status: F Test: CALCIUM LEVEL; Value: 9.0; Range: 8.8-10.2; Units: MG/DL; Status: F Test Note: ; Units are mL/min/1.73 m2 Chronic Kidney Disease Staging per NKF: Stage I & II GFR >=60 Normal to Mildly Decreased Stage III GFR 30-59 Moderately Decreased Stage IV GFR 15-29 Severely Decreased Stage V GFR <15 Very Little GFR Left ESRD GFR <15 on UTILIZATION REVIEW NURSE Lab Order: CBC with Diff; SPEC'M 12/22/16 12:38 Test: WHITE BLOOD COUNT; Value: 7.9; Range: 4.0-10.0; Units: K/mm3; Status: F Test: RED BLOOD COUNT; Value: 3.96; Range: 4.00-5.40; Abnormal: Below low normal; Units: M/mm3; Status: F Test: HEMOGLOBIN; Value: 11.5; Range: 12.0-16.0; Abnormal: Below low normal; Units: g/dl; Status: F Test: HEMATOCRIT; Value: 35.3; Range: 36.0-47.0; Abnormal: Below low normal; Units: %; Status: F Test: MEAN CORPUSCULAR VOLUME; Value: 89.2; Range: 80.0-96.0; Units: fl; Status: F Test: MEAN CORPUSCULAR HEMOGLOBIN; Value: 29.1; Range: 27.0-33.0; Units: pg; Status: F Test: MEAN CORPUSCULAR HGB CONC; Value: 32.7; Range: 32.0-36.5; Units: g/dl; Status: F Test: RED CELL DISTRIBUTION WIDTH; Value: 14.7; Range: 11.5-14.5; Abnormal: Above high normal; Units: %; Status: F Test: PLATELET COUNT, AUTOMATED; Value: 250; Range: 150-450; Units: k/mm3; Status: F Test: NEUTROPHILS %; Value: 73.4; Range: 36.0-66.0; Abnormal: Above high normal; Units: %; Status: F Test: LYMPH %; Value: 18.2; Range: 24.0-44.0; Abnormal: Below low normal; Units: %; Status: F Test: MONO %; Value: 4.7; Range: 0.0-5.0; Units: %; Status: F Test: EOS %; Value: 2.3; Range: 0.0-3.0; Units: %; Status: F Test: BASO %; Value: 0.3; Range: 0.0-1.0; Units: %; Status: F Test: LARGE UNSTAINED CELL %; Value: 1.2; Range: 0.0-4.0; Units: %; Status: F Test: NEUTROPHILS #; Value: 5.8; Range: 1.8-7.7; Units: K/mm3; Status: F Test: LYMPH #; Value: 1.5; Range: 1.5-4.5; Units: K/mm3; Status: F Test: MONO #; Value: 0.4; Range: 0.0-0.8; Units: K/mm3; Status: F Test: EOS #; Value: 0.2; Range: 0.0-0.50; Units: K/mm3; Status: F Test: BASO #; Value: 0.0; Range: 0.0-0.2; Units: K/mm3; Status: F Test: LARGE UNSTAINED CELL #; Value: 0.1; Range: 0.0-0.4; Units: K/mm3; Status: F Lab Order: [facility]; SPEC'M 12/22/16 12:38 Test: CPK CREATINE PHOSPHOKINASE; Value: 102; Range: 26-192; Units: U/L; Status: F Test: CK-MB VALUE MASS; Value: 1.0; Range: 0.0-3.6; Units: NG/ML; Status: F Test: MB/CK RELATIVE INDEX; Value: 0.98; Range: < OR =4; Status: F Test Note: ; DIAGNOSIS CRITERIA MMB ng/ml Relative Index (RI) NON-AMI < or = 5 N/A DELUNA ZONE > 5 < or = 4 AMI > 5 > 4 Lab Order: Troponin; [facility]' 12/22/16 12:38 Test: TROPONIN I; Value: < 0.02; Range: < 0.10; Units: NG/ML; Status: F Test Note: ; Troponin I Reference Interval for [facility] LOCI: 99th Percentile= 0.00-0.045 ng/ml Risk Stratification: <= 0.10 ng/ml Decreased Risk for Adverse Clinical Events. 0.10-1.50 ng/ml Increased Risk for Adverse Clinical Events. Evaluation of additional criterion and/or repeat testing in 2-6 hours is suggested to rule out myocardial damage. >= 1.50 ng/ml Indicative of Myocardial Injury. Lab Order: BNP; [facility] 12/22/16 12:38 Test: BRAIN NATRIURETIC PEPTIDE; Value: 389; Range: <100; Abnormal: Above high normal; Units: PG/ML; Status: F Lab Order: D-Dimer Quant; [facility]' 12/22/16 12:38 Test: D-DIMER QUANT; Value: 490.6; Range: <500; Units: ng/ml; Status: F Radiology Order: Chest, 2 View (pa\E\lat) Test: Chest, 2 View (pa\E\lat) REASON FOR EXAMINATION: Chest Pain; Chest x-ray: Two views.; ; History: Chest pain.; ; Comparison study November 13, 2015.; ; Findings: Moderate cardiomegaly is observed. Heart size is unchanged. The; pulmonary vasculature is cephalized. Pleural angles are sharp. No evidence of; pulmonary edema or pleural effusion seen. No infiltrate seen.; ; Impression:; ; Cardiomegaly with cephalized pulmonary vasculature consistent with mild CHF. 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 unablet o do cta - chest pain; BILATERAL LOWER EXTREMITY DOPPLER VENOUS ULTRASOUND:; ; Comparison: Right lower extremity of 11/18/2016, 12/26/2014.; ; Technique: The deep venous system of the bilateral lower extremities is; evaluated with deluna scale imaging, compression ultrasound, color imaging and; duplex Doppler interrogation. Examination from the groin through the popliteal; fossa into the proximal calf.; ; Findings: There is full compressibility from the common femoral vein in the; inguinal region through the popliteal vein on both sides. Color imaging confirms; patency throughout the course of the deep venous system. There is respiratory; variation and augmented flow at all levels.; ; Impression:; ; 1. No Doppler venous ultrasound evidence of DVT in the bilateral lower; extremities. The exam was technically limited due to body habitus.; ; ; Signed by; Surya Chang MD 12/22/2016 04:28 P; Outcome: 17:04 Discharge ordered by Provider. 17:39 Discharge Assessment: Patient awake, alert and oriented x 3. No cognitive and/or hs1 functional deficits noted. Patient verbalized understanding of disposition instructions. patient administered narcotics - no. The following High Risk Discharge criteria are identified: None. Discharged to home ambulatory, with friend. Condition: stable. Instructed on discharge instructions, follow up and referral plans. medication usage, Demonstrated understanding of instructions, medications, Pt was receptive of discharge instructions/ teaching. Ultrasound Study completed. Property sent home with patient. 17:39 Patient left the ED. hs1 Signatures: Dispatcher [employer] EDMS Richelle Arreguin MD MD ml Killian, Julia, Reg Reg Jae Cotton, RN RN ml6 Iesha Woodard RN RN hs1 Domo Kaur Demeishia dem1 Mariah, Le Lara Brittney, PCA DRIER AND PULVERIZER TENDER bnrex Chart Complete MTDD
== END 2016-12-22 17:39 | disposition home or self-care (01) ==
LOC: M ED 12:16
DX: I50.9 Heart failure, unspecified (principal); R07.9 Chest pain, unspecified; R94.31 Abnormal electrocardiogram [ECG] [EKG]; I48.91 Unspecified atrial fibrillation; I20.9 Angina pectoris, unspecified; I63.9 Cerebral infarction, unspecified; E78.00 Pure hypercholesterolemia, unspecified; M10.9 Gout, unspecified; N18.6 End stage renal disease; I12.0 Hypertensive chronic kidney disease with stage 5 chronic kidney disease or end stage renal disease; Z79.01 Long term (current) use of anticoagulants; Z79.899 Other long term (current) drug therapy
CPT/HCPCS: 36415; 71020; 80048; 82550; 82553; 83880; 85025; 85379; 93005; 93041; 93970; 96374; 96375; 99285; J1940; J2405

== ENCOUNTER 2017-04-06 12:15 | Emergency (ER) | payer MEDICARE, OTHER ==
[~2017-04-06] VITALS: Ht 165.1 cm; Wt 113.4 kg
[2017-04-06] MEDS ORDERED: EZET10TA (12:26)
[2017-04-06] MEDS ORDERED: VITA50003 (12:26)
[2017-04-06] MEDS ORDERED: WARF-23 (12:26)
[2017-04-06] MEDS ORDERED: FURO40TA2 (12:26)
[2017-04-06 13:15] VITALS: BP 170/88
[2017-04-06] MEDS ORDERED: INDO50CA PO (13:23)
== END 2017-04-06 13:34 | disposition home or self-care (01) ==
LOC: M ED 13:13
DX: M25.442 Effusion, left hand (principal); M10.042 Idiopathic gout, left hand; I11.9 Hypertensive heart disease without heart failure; E78.5 Hyperlipidemia, unspecified; I51.9 Heart disease, unspecified; Z79.899 Other long term (current) drug therapy; Z79.01 Long term (current) use of anticoagulants

== ENCOUNTER 2017-08-27 11:37 | Emergency (ER) | payer MEDICARE ==
[~2017-08-27] VITALS: Ht 165.1 cm; Wt 115.5 kg
[~2017-08-27 11:37] MED LIST changes: -COUM2.5T11 PO; +COUM2.5T17 PO; +EZET10TA; +FURO40TA2; +HYDR-3911 PO; -HYDR-4267 PO; +INDO50CA PO; -METO100T PO; +METO100T5 PO; -ULTR37.52 PO; +ULTR37.54 PO; +VITA1CAP40; +WARF-23; -ZETI10TA2 PO; +ZETI10TA30 PO
[2017-08-27] MEDS ORDERED: ALLO15TA (11:47)
[2017-08-27] MEDS ORDERED: KETOROLAC 30 MG/ML VIAL (J1885) IV ONE (12:30)
[2017-08-27 13:02] LABS: BASO % 0.2 % (0.0-1.0); EOS % 0.4 % (0.0-3.0); IMMATURE GRANULOCYTE % 0.5 % (0-0); LYMPH # 1.4 10^3/uL (1.5-4.5); LYMPH % 13.4 % (24.0-44.0); MEAN CORPUSCULAR HGB CONC 32.6 g/dl (32.0-36.5); MEAN CORPUSCULAR VOLUME 92.2 fl (80.0-96.0); MONO # 1.1 10^3/uL (0.0-0.8); MONO % 10.8 % (0.0-5.0); NEUTROPHILS # 7.8 10^3/uL (1.8-7.7); NEUTROPHILS % 74.7 % (36.0-66.0); PLATELET COUNT, AUTOMATED 212 10^3/uL (150-450); RED CELL DISTRIBUTION WIDTH 14.4 % (11.5-14.5); WHITE BLOOD COUNT 10.5 10^3/uL (4.0-10.0)
[2017-08-27 13:33] LABS: ERYTHROCYTE SEDIMENTATION RATE 70 mm/hr (0-30)
[2017-08-27 13:35] LABS: CREATININE FOR GFR 1.92 MG/DL (0.55-1.02); GLOMERULAR FILTRATION RATE 27.9 (>45); POTASSIUM SERUM 4.7 MEQ/L (3.5-5.1); URIC ACID 8.1 MG/DL (2.6-6.0)
--- NOTE | 2017-08-27 13:41 | REP ---
Right hand series: Four views. History: Right hand swelling. Infection. Findings: Four views of the right hand show diffuse osteoporosis. There is diffuse dorsal soft tissue swelling over the carpus and metacarpal regions and into the fingers. No soft tissue gas or opaque foreign body is seen. No fracture is noted. Impression: Diffuse swelling seen. No fracture, opaque foreign body, or soft tissue gas seen. Signed by Mega Echols MD 08/27/2017 05:10 P
[2017-08-27 13:46] VITALS: BP 183/85
[2017-08-27] MEDS ORDERED: KEFL500C17 PO (13:47)
[2017-08-27] MEDS ORDERED: NORCOTAB PO (13:47)
[2017-08-27] MEDS ORDERED: CEPHALEXIN 500 MG CAP PO ONE (14:00)
[2017-08-27] MEDS ORDERED: NORCO, ANEXSIA 5/325MG TABLET (HYDROcodone/ACETAMINOPHEN) PO ONE (14:00)
== END 2017-08-27 14:23 | disposition home or self-care (01) ==
LOC: M ED 11:37
DX: L03.113 Cellulitis of right upper limb (principal); M1A.0410 Idiopathic chronic gout, right hand, without tophus (tophi); I50.9 Heart failure, unspecified; I12.9 Hypertensive chronic kidney disease with stage 1 through stage 4 chronic kidney disease, or unspecified chronic kidney disease; E78.70 Disorder of bile acid and cholesterol metabolism, unspecified; N18.3 Chronic kidney disease, stage 3 (moderate); Z79.84 Long term (current) use of oral hypoglycemic drugs; Z79.899 Other long term (current) drug therapy; Z86.73 Personal history of transient ischemic attack (TIA), and cerebral infarction without residual deficits; Z86.718 Personal history of other venous thrombosis and embolism; Z87.891 Personal history of nicotine dependence
CPT/HCPCS: 73130; 80048; 84550; 85025; 85652; 86140; 96374; 99283; J1885

== ENCOUNTER → 2017-09-09 | Outpatient (REF) | payer OTHER ==
[~2017-09-09] MED LIST changes: +ALLO15TA; +KEFL500C17 PO; +NORCOTAB PO
[2017-09-09 16:33] LABS: BASO % 0.5 % (0.0-1.0); EOS # 0.1 10^3/uL (0.0-0.50); EOS % 1.8 % (0.0-3.0); IMMATURE GRANULOCYTE % 0.8 % (0-0); LYMPH # 1.6 10^3/uL (1.5-4.5); LYMPH % 22.1 % (24.0-44.0); MEAN CORPUSCULAR HEMOGLOBIN 29.4 pg (27.0-33.0); MEAN CORPUSCULAR HGB CONC 31.9 g/dl (32.0-36.5); MEAN CORPUSCULAR VOLUME 92.3 fl (80.0-96.0); MONO # 0.6 10^3/uL (0.0-0.8); MONO % 8.1 % (0.0-5.0); NEUTROPHILS # 4.9 10^3/uL (1.8-7.7); NEUTROPHILS % 66.7 % (36.0-66.0); PLATELET COUNT, AUTOMATED 266 10^3/uL (150-450); WHITE BLOOD COUNT 7.3 10^3/uL (4.0-10.0)
[2017-09-09 18:21] LABS: ERYTHROCYTE SEDIMENTATION RATE 79 mm/hr (0-30)
== END ==
LOC: M SFHCPLAZ 12:19
PROVIDERS: ATTEND Family Medicine
DX: M79.89 Other specified soft tissue disorders (principal)

== ENCOUNTER → 2018-01-12 | Outpatient (CLI) | payer MEDICARE | LOC: M RAD 14:12 | DX: M79.89 Other specified soft tissue disorders (principal) | CPT/HCPCS: 93971 ==

== ENCOUNTER → 2018-03-05 | Outpatient (CLI) | payer MEDICARE | LOC: M RAD 12:41 | DX: M85.871 Other specified disorders of bone density and structure, right ankle and foot (principal); M19.071 Primary osteoarthritis, right ankle and foot; M79.671 Pain in right foot | CPT/HCPCS: 73630 ==

== ENCOUNTER → 2018-11-30 | Outpatient (CLI) | payer MEDICARE, MEDICAID ==
[~2018-11-30] MED LIST changes: -BUME2TAB PO; +BUME2TAB3 PO; -VITA1CAP40; +VITA50005
--- NOTE | 2018-11-30 15:38 | REP ---
Duplex extremity venous ultrasound: Right lower extremity. History: Leg swelling. Cellulitis right lower extremity. Rule out DVT. Findings: The deep veins are anechoic and fully compressible from the groin to the popliteal fossa in the right lower extremity. Color flow imaging is homogeneous. Spectral Doppler interrogation demonstrates intact respiratory variation in flow and normal manual augmentation of flow. There is no evidence of deep vein thrombosis. Impression: Negative right lower extremity duplex venous ultrasound. No evidence of deep vein thrombosis. Electronically Signed by Mega Echols MD 11/30/2018 11:21 A
== END ==
LOC: M RAD 10:50
PROVIDERS: ATTEND Family Medicine
DX: M79.89 Other specified soft tissue disorders (principal); L03.115 Cellulitis of right lower limb
CPT/HCPCS: 87804; 93971; G0463

== ENCOUNTER 2019-02-08 07:33 | Emergency (ER) | payer MEDICARE, MEDICAID ==
[~2019-02-08 07:33] MED LIST changes: -/ACETCOD2T PO; -/METO25TA PO; -/SENOSTA PO; -/WARF5TA PO; +ACET1TAB15 PO; -ALLO15TA; +ALLO300T2; -CALC0.5C OR; +CALC0.5C14 OR; -DOCU10ELUD PO; +DOCU5LIQ PO; +HYDR-3715 PO; +HYDR-4267 PO; -HYDR50TA PO; +METO1TAB84 PO; -NORCOTAB PO; +OXYC1TAB23 PO; -PERCOCET PO; +SENO1TAB PO
[2019-02-08] MEDS ORDERED: IPRATROPIUM 0.5MG/ALBUTEROL 2.5MG INH SOL UD 3ML (DUONEB)(J7620) NEB ONE (08:15)
[2019-02-08] MEDS ORDERED: ALBUTEROL SULFATE 2.5 MG/0.5 ML INH NEB SOLN As Ordered ONE (08:17)
[2019-02-08] MEDS: ALBUTEROL SULFATE 2.5 MG/0.5 ML INH NEB SOLN INH PRN ×2 (08:24→08:25)
[2019-02-08 08:32] LABS: BASO % 0.6 % (0.0-1.0); EOS # 0.2 10^3/uL (0.0-0.50); EOS % 2.4 % (0.0-3.0); HEMATOCRIT 37.5 % (36.0-47.0); LYMPH # 1.2 10^3/uL (1.5-4.5); LYMPH % 17.4 % (24.0-44.0); MEAN CORPUSCULAR HEMOGLOBIN 30.5 pg (27.0-33.0); MEAN CORPUSCULAR VOLUME 95.2 fl (80.0-96.0); MONO # 0.4 10^3/uL (0.0-0.8); MONO % 6.6 % (0.0-5.0); NEUTROPHILS # 4.8 10^3/uL (1.8-7.7); NEUTROPHILS % 72.2 % (36.0-66.0); PLATELET COUNT, AUTOMATED 167 10^3/uL (150-450); RED BLOOD COUNT 3.94 10^6/uL (4.00-5.40); WHITE BLOOD COUNT 6.7 10^3/uL (4.0-10.0)
[2019-02-08 08:42] LABS: INR 2.24; PROTHROMBIN TIME 25.2 SECONDS (12.1-14.4)
[2019-02-08 08:43] LABS: ABG HCO3 26.3 MEQ/L (22.0-26.0); ABG O2 SATURATION 92.9 % (95.0-99.0); ABG PARTIAL PRESSURE CO2 40.1 mmHg (35.0-45.0); ABG PARTIAL PRESSURE O2 65.4 mmHg (75.0-100.0); ABG STANDARD HCO3 26.1 MEQ/L (22.0-26.0); ABG TOTAL CO2 27.6 MEQ/L (23.0-31.0); ABG pH (ARTERIAL) 7.435 UNITS (7.350-7.450)
[2019-02-08 08:43] LABS: PARTIAL THROMBOPLASTIN TIME 43.7 SECONDS (25.4-37.6)
--- NOTE | 2019-02-08 08:58 | REP ---
PORTABLE CHEST: AP portable view of the chest is performed and compared to prior studies, most recent of which is 12/22/2016. There is cardiomegaly and there appears to be vascular congestion. Increased interstitial markings are present predominately in the lung bases which may represent interstitial edema. No consolidating infiltrate is seen. Mediastinal silhouette is unchanged. IMPRESSION: Cardiomegaly and vascular congestion. Suspect basilar interstitial edema. Electronically Signed by Yusef Murray MD 02/09/2019 10:01 A
[2019-02-08 09:01] LABS: BLOOD UREA NITROGEN 23 MG/DL (7-18); CALCIUM LEVEL 8.8 MG/DL (8.8-10.2); CARBON DIOXIDE LEVEL 30 MEQ/L (21-32); CHLORIDE LEVEL 105 MEQ/L (98-107); CPK CREATINE PHOSPHOKINASE 75 U/L (26-192); GLUCOSE, FASTING 103 MG/DL (70-100); MB/CK RELATIVE INDEX 1.33 (< OR =4); NT-PRO BNP 2900 PG/ML (<125); SODIUM LEVEL 141 MEQ/L (136-145); TROPONIN I < 0.02 NG/ML (< 0.10)
[2019-02-08] MEDS ORDERED: FUROSEMIDE 100 MG/10 ML VIAL (J1940) IV ONE (10:15)
[2019-02-08] MEDS ORDERED: FUROSEMIDE 20 MG/2 ML VIAL (J1940) IV ONE (10:30)
[2019-02-08] MEDS ORDERED: METOPROLOL TARTRATE 100 MG TAB PO ONE (11:30)
[2019-02-08 12:08] VITALS: BP 192/103
[2019-02-08 13:07] VITALS: BP 178/99
--- NOTE | 2019-02-08 19:52 | ECGEPIP ---
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
[2019-02-09] MEDS ORDERED: ALLOPURINOL 300 MG TAB PO SCH (09:00)
== END 2019-02-08 13:57 | disposition home or self-care (01) ==
LOC: EDBD 07:33 → M ED 07:33
DX: I50.9 Heart failure, unspecified (principal); I13.0 Hypertensive heart and chronic kidney disease with heart failure and stage 1 through stage 4 chronic kidney disease, or unspecified chronic kidney disease; N18.3 Chronic kidney disease, stage 3 (moderate); I48.91 Unspecified atrial fibrillation; Z86.73 Personal history of transient ischemic attack (TIA), and cerebral infarction without residual deficits; Z87.891 Personal history of nicotine dependence; Z79.2 Long term (current) use of antibiotics; Z79.891 Long term (current) use of opiate analgesic; Z79.899 Other long term (current) drug therapy; Z79.01 Long term (current) use of anticoagulants
CPT/HCPCS: 36415; 36600; 71045; 80048; 82550; 82553; 82803; 83880; 84484; 85025; 85610; 85730; 87040; 93005; 93041; 94640; 96374; 99285; J1940

== ENCOUNTER 2019-05-28 12:21 | Emergency (ER) | payer MEDICARE, MEDICAID ==
[~2019-05-28] VITALS: Ht 154.9 cm; Wt 120.5 kg
[~2019-05-28 12:21] MED LIST changes: -EZET10TA; +EZET10TA21; -INDO50CA PO; +INDO50CA11 PO
[2019-05-28] MEDS ORDERED: ATOR40TA75 PO (13:10)
[2019-05-28] MEDS ORDERED: ZYLO300T6 PO (13:10)
[2019-05-28 13:32] LABS: BASO % 0.4 % (0.0-1.0); EOS # 0.2 10^3/uL (0.0-0.50); EOS % 2.7 % (0.0-3.0); HEMATOCRIT 37.7 % (36.0-47.0); HEMOGLOBIN 12.2 g/dl (12.0-15.5); LYMPH # 1.4 10^3/uL (1.5-4.5); LYMPH % 19.1 % (24.0-44.0); MEAN CORPUSCULAR HEMOGLOBIN 31.1 pg (27.0-33.0); MEAN CORPUSCULAR HGB CONC 32.4 g/dl (32.0-36.5); MEAN CORPUSCULAR VOLUME 96.2 fl (80.0-96.0); MONO # 0.6 10^3/uL (0.0-0.8); MONO % 8.7 % (0.0-5.0); NEUTROPHILS % 68.4 % (36.0-66.0); PLATELET COUNT, AUTOMATED 178 10^3/uL (150-450); RED BLOOD COUNT 3.92 10^6/uL (4.00-5.40); WHITE BLOOD COUNT 7.3 10^3/uL (4.0-10.0)
[2019-05-28 13:40] LABS: INR 2.38; PROTHROMBIN TIME 25.8 SECONDS (11.8-14.0)
[2019-05-28 13:41] LABS: PARTIAL THROMBOPLASTIN TIME 41.4 SECONDS (25.0-38.4)
[2019-05-28 14:18] LABS: ALBUMIN 3.7 GM/DL (3.2-5.2); ALT/SGPT 18 U/L (12-78); BILIRUBIN,DIRECT < 0.1 MG/DL (0.0-0.2); BILIRUBIN,TOTAL 0.3 MG/DL (0.2-1.0); BLOOD UREA NITROGEN 29 MG/DL (7-18); CALCIUM LEVEL 8.8 MG/DL (8.8-10.2); CARBON DIOXIDE LEVEL 28 MEQ/L (21-32); CHLORIDE LEVEL 110 MEQ/L (98-107); CK-MB VALUE MASS < 1.0 NG/ML (<3.6); CPK CREATINE PHOSPHOKINASE 96 U/L (26-192); CREATININE FOR GFR 1.65 MG/DL (0.55-1.30); FREE T4 1.05 NG/DL (0.76-1.46); GLUCOSE, FASTING 91 MG/DL (70-100); LIPASE 412 U/L (73-393); MB/CK RELATIVE INDEX 1.04 (< OR =4); NT-PRO BNP 2148 PG/ML (<125); POTASSIUM SERUM 4.6 MEQ/L (3.5-5.1); SODIUM LEVEL 142 MEQ/L (136-145); TOTAL PROTEIN 7.3 GM/DL (6.4-8.2); TROPONIN I < 0.02 NG/ML (< 0.10)
[2019-05-28] MEDS ORDERED: FUROSEMIDE 40 MG/4 ML VIAL (J1940) IV ONE (14:45)
[2019-05-28 16:47] LABS: CK-MB VALUE MASS < 1.0 NG/ML (<3.6); CPK CREATINE PHOSPHOKINASE 141 U/L (26-192); MB/CK RELATIVE INDEX 0.71 (< OR =4); TROPONIN I < 0.02 NG/ML (< 0.10)
[2019-05-28 19:32] VITALS: BP 162/93
--- NOTE | 2019-05-29 06:48 | REP ---
Chest x-ray: Two views. History: Chest pain. Comparison study: February 08, 2019. Findings: EKG monitoring electrodes overlie the chest. The lungs are well inflated and free of infiltrate. Mild cardiomegaly is observed. Pulmonary vasculature is cephalized. No focal infiltrate is seen. No evidence of pleural effusion or pulmonary edema. Impression: Mild cardiomegaly. Cephalization. Otherwise negative. Electronically Signed by Mega Echols MD 05/29/2019 09:34 A
--- NOTE | 2019-05-29 06:49 | REP ---
Right shoulder: Three views. History: Pain. Findings: The right glenohumeral and acromioclavicular joints are normally aligned. There is osteoarthritis of the AC joint and inferior glenoid spurring is seen. No fracture is seen. Periarticular soft tissues are unremarkable. Impression: Mild glenohumeral and acromioclavicular joint osteoarthritis. No acute bony abnormality. Electronically Signed by Mega Echols MD 05/29/2019 09:34 A
--- NOTE | 2019-05-30 16:39 | ECGEPIP ---
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
--- NOTE | 2019-05-30 16:42 | ECGEPIP ---
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
== END 2019-05-28 19:34 | disposition home or self-care (01) ==
LOC: M ED 12:21 → EDBD 12:21 → M ED 19:34
DX: I50.9 Heart failure, unspecified (principal); R00.2 Palpitations; I48.91 Unspecified atrial fibrillation; I28.8 Other diseases of pulmonary vessels; I10 Essential (primary) hypertension; M10.9 Gout, unspecified; N18.3 Chronic kidney disease, stage 3 (moderate); Z86.718 Personal history of other venous thrombosis and embolism; Z86.73 Personal history of transient ischemic attack (TIA), and cerebral infarction without residual deficits; Z87.891 Personal history of nicotine dependence; Z79.01 Long term (current) use of anticoagulants; Z79.899 Other long term (current) drug therapy
CPT/HCPCS: 71046; 73030; 80048; 80076; 82550; 82553; 83690; 83880; 84439; 84443; 84484; 85025; 85610; 85730; 93005; 93041; 94760; 96374; 99285; J1940

== ENCOUNTER 2020-01-02 11:56 | Emergency (ER) | payer MEDICARE, MEDICAID ==
[~2020-01-02] VITALS: Ht 154.9 cm; Wt 120.5 kg
[~2020-01-02 11:56] MED LIST changes: +ATOR40TA75 PO; -FURO40TA2; +FURO40TA2 PO; -INDO50CA11 PO; +INDO50CA91 PO; +ZETI10TA16 PO; -ZETI10TA30 PO; +ZYLO300T6 PO
[2020-01-02 12:58] LABS: BASO % 0.3 % (0.0-1.0); EOS # 0.2 10^3/uL (0.0-0.5); EOS % 2.9 % (0.0-3.0); HEMATOCRIT 37.8 % (36.0-47.0); HEMOGLOBIN 11.9 g/dl (12.0-15.5); LYMPH # 1.2 10^3/uL (1.5-5.0); LYMPH % 18.5 % (24.0-44.0); MEAN CORPUSCULAR HEMOGLOBIN 30.6 pg (27.0-33.0); MEAN CORPUSCULAR HGB CONC 31.5 g/dl (32.0-36.5); MEAN CORPUSCULAR VOLUME 97.2 fl (80.0-96.0); MONO # 0.6 10^3/uL (0.0-0.8); MONO % 8.6 % (0.0-5.0); NEUTROPHILS # 4.5 10^3/uL (1.5-8.5); NEUTROPHILS % 69.1 % (36.0-66.0); PLATELET COUNT, AUTOMATED 173 10^3/uL (150-450); RED BLOOD COUNT 3.89 10^6/uL (4.00-5.40); WHITE BLOOD COUNT 6.5 10^3/uL (4.0-10.0)
[2020-01-02 13:23] LABS: ALBUMIN 3.7 GM/DL (3.2-5.2); ALT/SGPT 19 U/L (12-78); BILIRUBIN,DIRECT 0.1 MG/DL (0.0-0.2); BILIRUBIN,TOTAL 0.3 MG/DL (0.2-1.0); BLOOD UREA NITROGEN 27 MG/DL (7-18); CALCIUM LEVEL 8.3 MG/DL (8.8-10.2); CARBON DIOXIDE LEVEL 31 MEQ/L (21-32); CHLORIDE LEVEL 107 MEQ/L (98-107); CREATININE FOR GFR 1.72 MG/DL (0.55-1.30); GLOMERULAR FILTRATION RATE 31.5 (>45); GLUCOSE, FASTING 109 MG/DL (70-100); POTASSIUM SERUM 4.5 MEQ/L (3.5-5.1); SODIUM LEVEL 142 MEQ/L (136-145)
[2020-01-02 14:17] LABS: CK-MB VALUE MASS < 1.0 NG/ML (<3.6); CPK CREATINE PHOSPHOKINASE 71 U/L (26-192); MAGNESIUM LEVEL 2.3 MG/DL (1.8-2.4); MB/CK RELATIVE INDEX 1.41 (< OR =4); NT-PRO BNP 2478 PG/ML (<125); TROPONIN I < 0.02 NG/ML (< 0.10)
[2020-01-02 14:18] LABS: INR 2.45; PROTHROMBIN TIME 26.4 SECONDS (11.8-14.0)
--- NOTE | 2020-01-02 14:18 | REP ---
Portable chest x-ray: Single view. History: Tachycardia, palpitations. Comparison study May 28, 2019. Findings: The lungs are symmetrically aerated and free of infiltrate. Pleural angles are sharp. Heart is prominent in size unchanged from the comparison study. Vascular interstitial markings are slightly prominent. No marisol pulmonary edema. No focal infiltrate. Impression: Cardiomegaly with mildly prominent vascular and interstitial markings question CHF. No focal infiltrate. Electronically Signed by Mega Echols MD 01/02/2020 02:25 P
[2020-01-02] MEDS ORDERED: LABETALOL HCL 100 MG/20 ML VIAL IV STA (14:51)
[2020-01-02] MEDS ORDERED: FUROSEMIDE 100 MG/10 ML VIAL (J1940) IV ONE (15:00)
[2020-01-02 15:39] VITALS: BP 187/79
[2020-01-02 16:54] VITALS: BP 175/81
--- NOTE | 2020-01-03 20:16 | ECGEPIP ---
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
== END 2020-01-02 17:32 | disposition home or self-care (01) ==
LOC: EDSEX 11:56 → EDBD 11:56 → M ED 11:56
DX: I50.9 Heart failure, unspecified (principal); I48.91 Unspecified atrial fibrillation; I12.9 Hypertensive chronic kidney disease with stage 1 through stage 4 chronic kidney disease, or unspecified chronic kidney disease; N18.3 Chronic kidney disease, stage 3 (moderate); Z79.899 Other long term (current) drug therapy; Z79.01 Long term (current) use of anticoagulants; Z87.891 Personal history of nicotine dependence
CPT/HCPCS: 36415; 71045; 80053; 82248; 82550; 82553; 83735; 83880; 84484; 85025; 85610; 93005; 96374; 96375; 99291; J1940

== ENCOUNTER 2020-02-03 16:45 | Emergency (ER) | payer MEDICARE, MEDICAID ==
[~2020-02-03] VITALS: Ht 165.1 cm; Wt 122.8 kg
[2020-02-03] MEDS ORDERED: ASPIRIN 81 MG CHEW TABLET PO ONE (17:15)
--- NOTE | 2020-02-03 17:40 | REP ---
Clinical: Acute chest pain . Comparison: 01/02/2020 . Findings: The mediastinum and cardiac silhouette are stable and cardiomegaly is again noted. The lung paz are clear without acute consolidation, effusion, or pneumothorax. Skeletal structures are intact. Impression: Stable cardiomegaly. No focal consolidation or effusion. Electronically Signed by Shlomo Neves MD 02/03/2020 05:31 P
[2020-02-03 17:51] LABS: BASO % 0.4 % (0.0-1.0); EOS # 0.2 10^3/uL (0.0-0.5); EOS % 2.8 % (0.0-3.0); HEMATOCRIT 37.8 % (36.0-47.0); LYMPH # 1.4 10^3/uL (1.5-5.0); LYMPH % 19.9 % (24.0-44.0); MEAN CORPUSCULAR HEMOGLOBIN 30.6 pg (27.0-33.0); MEAN CORPUSCULAR HGB CONC 31.7 g/dl (32.0-36.5); MEAN CORPUSCULAR VOLUME 96.4 fl (80.0-96.0); MONO # 0.5 10^3/uL (0.0-0.8); MONO % 7.3 % (0.0-5.0); NEUTROPHILS # 4.9 10^3/uL (1.5-8.5); PLATELET COUNT, AUTOMATED 179 10^3/uL (150-450); RED BLOOD COUNT 3.92 10^6/uL (4.00-5.40); WHITE BLOOD COUNT 7.1 10^3/uL (4.0-10.0)
[2020-02-03 18:22] LABS: BLOOD UREA NITROGEN 31 MG/DL (7-18); CALCIUM LEVEL 8.5 MG/DL (8.8-10.2); CARBON DIOXIDE LEVEL 29 MEQ/L (21-32); CHLORIDE LEVEL 109 MEQ/L (98-107); CK-MB VALUE MASS < 1.0 NG/ML (<3.6); CPK CREATINE PHOSPHOKINASE 84 U/L (26-192); CREATININE FOR GFR 1.69 MG/DL (0.55-1.30); GLOMERULAR FILTRATION RATE 32.1 (>45); GLUCOSE, FASTING 125 MG/DL (70-100); MB/CK RELATIVE INDEX 1.19 (< OR =4); POTASSIUM SERUM 4.1 MEQ/L (3.5-5.1); SODIUM LEVEL 142 MEQ/L (136-145); TROPONIN I < 0.02 NG/ML (< 0.10)
--- NOTE | 2020-02-03 18:46 | ECGEPIP ---
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
[2020-02-03] MEDS ORDERED: NAPR-837 PO (18:50)
[2020-02-03 18:56] VITALS: BP 164/80
== END 2020-02-03 19:16 | disposition home or self-care (01) ==
LOC: M ED 16:45
DX: R07.89 Other chest pain (principal); I10 Essential (primary) hypertension; N28.9 Disorder of kidney and ureter, unspecified; I48.91 Unspecified atrial fibrillation; E78.5 Hyperlipidemia, unspecified; Z86.73 Personal history of transient ischemic attack (TIA), and cerebral infarction without residual deficits; Z79.899 Other long term (current) drug therapy; Z79.01 Long term (current) use of anticoagulants; Z88.8 Allergy status to other drugs, medicaments and biological substances

== ENCOUNTER 2020-10-03 14:07 | Emergency (ER) | payer MEDICARE, MEDICAID ==
[~2020-10-03] VITALS: Ht 154.9 cm; Wt 122.7 kg
[~2020-10-03 14:07] MED LIST changes: +NAPR-837 PO
--- NOTE | 2020-10-03 14:51 | REP ---
INDICATION: Syncope/near-syncope COMPARISON: 02/03/2020 TECHNIQUE: Portable AP view of the chest FINDINGS: Cardiomegaly is appreciated. Diffusely increased interstitial markings are nonspecific and differential diagnosis includes chronic changes along with interstitial edema and bronchitis. Subtle right basilar atelectasis cannot be excluded. No discrete focal consolidation or effusion. No pneumothorax. Skeletal structures intact. IMPRESSION: Stable cardiomegaly and diffuse chronic changes. Cannot exclude superimposed interstitial edema or interstitial pneumonia pattern/bronchitis. <Electronically signed by Shlomo Neves > 10/03/20 [id number]
[2020-10-03 14:53] LABS: BASO % 0.3 % (0.0-1.0); EOS # 0.5 10^3/uL (0.0-0.5); EOS % 6.9 % (0.0-3.0); HEMATOCRIT 34.5 % (36.0-47.0); HEMOGLOBIN 10.4 g/dl (12.0-15.5); LYMPH # 1.2 10^3/uL (1.5-5.0); MEAN CORPUSCULAR HEMOGLOBIN 29.2 pg (27.0-33.0); MEAN CORPUSCULAR HGB CONC 30.1 g/dl (32.0-36.5); MEAN CORPUSCULAR VOLUME 96.9 fl (80.0-96.0); MONO # 0.6 10^3/uL (0.0-0.8); MONO % 7.5 % (0.0-5.0); NEUTROPHILS # 5.1 10^3/uL (1.5-8.5); NEUTROPHILS % 68.8 % (36.0-66.0); PLATELET COUNT, AUTOMATED 186 10^3/uL (150-450); RED BLOOD COUNT 3.56 10^6/uL (4.00-5.40); WHITE BLOOD COUNT 7.4 10^3/uL (4.0-10.0)
[2020-10-03 15:11] LABS: INR 1.93; PROTHROMBIN TIME 22.5 SECONDS (12.5-14.3)
[2020-10-03 15:12] LABS: PARTIAL THROMBOPLASTIN TIME 40.4 SECONDS (24.2-38.5)
[2020-10-03 15:28] LABS: ALBUMIN 3.6 GM/DL (3.2-5.2); ALT/SGPT 17 U/L (12-78); BILIRUBIN,DIRECT 0.1 MG/DL (0.0-0.2); BILIRUBIN,TOTAL 0.4 MG/DL (0.2-1.0); BLOOD UREA NITROGEN 24 MG/DL (7-18); CALCIUM LEVEL 8.5 MG/DL (8.8-10.2); CARBON DIOXIDE LEVEL 29 MEQ/L (21-32); CHLORIDE LEVEL 108 MEQ/L (98-107); CK-MB VALUE MASS 1.2 NG/ML (<3.6); CPK CREATINE PHOSPHOKINASE 80 U/L (26-192); CREATININE FOR GFR 1.68 MG/DL (0.55-1.30); GLOMERULAR FILTRATION RATE 32.3 (>45); GLUCOSE, FASTING 96 MG/DL (70-100); POTASSIUM SERUM 4.3 MEQ/L (3.5-5.1); SODIUM LEVEL 143 MEQ/L (136-145); TOTAL PROTEIN 7.5 GM/DL (6.4-8.2); TROPONIN I < 0.02 NG/ML (< 0.10)
[2020-10-03 16:09] VITALS: BP 178/85
--- NOTE | 2020-10-04 14:21 | ECGEPIP ---
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
--- NOTE | 2020-10-06 06:30 | ED PDOC ---
Post-Departure Follow-Up dr ward faxed formal report of cxr forfu Richelle Hammer MD Oct 06, 2020 06:30
== END 2020-10-03 16:15 | disposition left against medical advice (07) ==
LOC: M ED 14:07 → EDBD 14:07 → EDSEX 14:07 → M ED 16:15
DX: R53.1 Weakness (principal); R21 Rash and other nonspecific skin eruption; I48.91 Unspecified atrial fibrillation; I12.9 Hypertensive chronic kidney disease with stage 1 through stage 4 chronic kidney disease, or unspecified chronic kidney disease; N18.9 Chronic kidney disease, unspecified; M10.9 Gout, unspecified; Z86.718 Personal history of other venous thrombosis and embolism; Z87.891 Personal history of nicotine dependence; Z79.899 Other long term (current) drug therapy; Z79.01 Long term (current) use of anticoagulants; Z79.1 Long term (current) use of non-steroidal anti-inflammatories (NSAID)

== ENCOUNTER → 2021-08-01 | Outpatient (REF) | payer MEDICARE, MEDICAID ==
[2021-08-01 20:25] LABS: PERCENT SATURATION 14.2 % (13.2-45.0)
== END ==
LOC: M LAB REF 18:37
PROVIDERS: ATTEND Internal Medicine Nephrology
DX: D64.9 Anemia, unspecified (principal)

== ENCOUNTER → 2022-01-21 | Outpatient (REF) | payer MEDICARE, MEDICAID ==
[~2022-01-21] MED LIST changes: +ULTR1TAB PO; -ULTR37.54 PO
[2022-01-21 18:04] LABS: PERCENT SATURATION 17.5 % (13.2-45.0)
== END ==
LOC: M LAB REF 17:41
PROVIDERS: ATTEND Nurse Practitioner Family
DX: D50.9 Iron deficiency anemia, unspecified (principal)

== ENCOUNTER → 2022-02-07 | Outpatient (REF) | payer MEDICARE, MEDICAID | LOC: M SFHCPLAZ 16:39 | PROVIDERS: ATTEND Physician Assistant | DX: R06.7 Sneezing (principal) ==

== ENCOUNTER 2022-03-13 14:07 | Emergency (ER) | payer MEDICARE, MEDICAID ==
[~2022-03-13] VITALS: Ht 154.9 cm; Wt 116.8 kg
[2022-03-13 15:52] VITALS: BP 158/69
== END 2022-03-13 16:29 | disposition home or self-care (01) ==
LOC: EDBD 14:07 → M ED 14:07
DX: I87.2 Venous insufficiency (chronic) (peripheral) (principal); I48.91 Unspecified atrial fibrillation; I12.9 Hypertensive chronic kidney disease with stage 1 through stage 4 chronic kidney disease, or unspecified chronic kidney disease; Z79.01 Long term (current) use of anticoagulants; Z79.899 Other long term (current) drug therapy

== ENCOUNTER → 2022-04-23 | Outpatient (REF) | payer MEDICARE, MEDICAID ==
[2022-04-23 18:00] LABS: PERCENT SATURATION 12.1 % (13.2-45.0)
== END ==
LOC: M LAB REF 17:00
PROVIDERS: ATTEND Nurse Practitioner Family
DX: D50.9 Iron deficiency anemia, unspecified (principal)

== ENCOUNTER → 2022-08-27 | Outpatient (CLI) | payer MEDICARE, MEDICAID ==
[2022-08-27 12:54] LABS: HEMOGLOBIN 11.9 g/dl (12.0-15.5); MEAN CORPUSCULAR HEMOGLOBIN 31.3 pg (27.0-33.0); MEAN CORPUSCULAR HGB CONC 32.2 g/dl (32.0-36.5); MEAN CORPUSCULAR VOLUME 97.4 fl (80.0-96.0); PLATELET COUNT, AUTOMATED 198 10^3/uL (150-450); WHITE BLOOD COUNT 9.9 10^3/uL (4.0-10.0)
[2022-08-27 13:20] LABS: CREATININE FOR GFR 2.48 MG/DL (0.55-1.30); GLOMERULAR FILTRATION RATE 20.5 (>39)
== END ==
LOC: M LAB 12:14
PROVIDERS: ATTEND Internal Medicine Cardiovascular Disease
DX: R07.9 Chest pain, unspecified (principal)

== ENCOUNTER 2022-09-19 13:32 | Emergency (ER) | payer MEDICARE, MEDICAID ==
[~2022-09-19] VITALS: Ht 165.1 cm; Wt 114.7 kg
[2022-09-19 13:32] VITALS: BP 147/86
[2022-09-19] MEDS ORDERED: CALC1CAP31 (14:06)
== END 2022-09-19 19:01 | disposition left against medical advice (07) ==
LOC: M ED 13:32
DX: Z53.21 Procedure and treatment not carried out due to patient leaving prior to being seen by health care provider (principal)

== ENCOUNTER → 2022-12-16 | Outpatient (REF) | payer MEDICARE ==
[~2022-12-16] MED LIST changes: +CALC1CAP31
[2022-12-16 17:07] LABS: CHOLESTEROL RISK RATIO 6.21 (<5); HDL CHOLESTEROL 36.7 MG/DL (>40); LDL CHOLESTEROL 128.1 MG/DL (<100)
[2022-12-16 17:09] LABS: THYROID STIMULATING HORMONE 1.629 uIU/ML (0.55-4.78)
[2022-12-16 17:10] LABS: TOTAL 25(OH) VITAMIN D 23.2 NG/ML (20.0-100.0)
[2022-12-16 18:35] LABS: HEMOGLOBIN A1c 5.2 % (4.0-6.0)
== END ==
LOC: M LAB REF 16:24
PROVIDERS: ATTEND Nurse Practitioner Family
DX: Z13.228 Encounter for screening for other metabolic disorders (principal)

== ENCOUNTER 2023-01-18 04:58 | Emergency (ER) | payer MEDICARE ==
[~2023-01-18] VITALS: Ht 165.1 cm; Wt 115.9 kg
[2023-01-18] MEDS ORDERED: ACETAMINOPHEN 325 MG TAB PO ONE (06:20)
[2023-01-18 07:03] LABS: INR 1.49; PROTHROMBIN TIME 18.3 SECONDS (12.5-14.5)
[2023-01-18] MEDS ORDERED: WARFARIN SOD 5MG TAB PO ONE (08:15)
[2023-01-18 08:21] VITALS: BP 132/76
== END 2023-01-18 08:33 | disposition home or self-care (01) ==
LOC: EDBD 04:58 → M ED 04:58
DX: M25.562 Pain in left knee (principal); M17.12 Unilateral primary osteoarthritis, left knee; R79.1 Abnormal coagulation profile; I48.91 Unspecified atrial fibrillation; I13.0 Hypertensive heart and chronic kidney disease with heart failure and stage 1 through stage 4 chronic kidney disease, or unspecified chronic kidney disease; I50.9 Heart failure, unspecified; G89.29 Other chronic pain; M10.9 Gout, unspecified; E78.5 Hyperlipidemia, unspecified; Z86.73 Personal history of transient ischemic attack (TIA), and cerebral infarction without residual deficits; Z88.8 Allergy status to other drugs, medicaments and biological substances; Z79.01 Long term (current) use of anticoagulants; Z79.899 Other long term (current) drug therapy

== ENCOUNTER 2023-02-09 14:20 | Emergency (ER) | payer MEDICARE ==
[~2023-02-09] VITALS: Ht 165.1 cm; Wt 114.1 kg
[2023-02-09 15:18] LABS: BASO # 0.1 10^3/uL (0.0-0.2); BASO % 0.5 % (0.0-1.0); EOS # 0.4 10^3/uL (0.0-0.5); EOS % 4.5 % (0.0-3.0); HEMATOCRIT 38.8 % (36.0-47.0); HEMOGLOBIN 12.6 g/dl (12.0-15.5); LYMPH # 1.4 10^3/uL (1.5-5.0); LYMPH % 14.4 % (24.0-44.0); MEAN CORPUSCULAR HEMOGLOBIN 31.3 pg (27.0-33.0); MEAN CORPUSCULAR HGB CONC 32.5 g/dl (32.0-36.5); MEAN CORPUSCULAR VOLUME 96.3 fl (80.0-96.0); MONO # 0.7 10^3/uL (0.0-0.8); MONO % 7.1 % (2.0-8.0); NEUTROPHILS # 7.2 10^3/uL (1.5-8.5); PLATELET COUNT, AUTOMATED 197 10^3/uL (150-450); RED BLOOD COUNT 4.03 10^6/uL (4.00-5.40); WHITE BLOOD COUNT 9.8 10^3/uL (4.0-10.0)
[2023-02-09 15:32] LABS: INR 1.51; PARTIAL THROMBOPLASTIN TIME 38.1 SECONDS (24.8-34.2); PROTHROMBIN TIME 18.5 SECONDS (12.5-14.5)
[2023-02-09 15:35] LABS: ALBUMIN 3.9 G/DL (3.2-5.2); BILIRUBIN,DIRECT 0.1 MG/DL (<0.4); BILIRUBIN,TOTAL 0.4 MG/DL (0.3-1.2); CALCIUM LEVEL 8.7 MG/DL (8.3-10.6); CREATININE FOR GFR 2.7 MG/DL (0.55-1.30); GLOMERULAR FILTRATION RATE 18.5 (>39); MB/CK RELATIVE INDEX 1.31 (< OR =4); POTASSIUM SERUM 4.7 MMOL/L (3.5-5.1); TOTAL PROTEIN 7.6 G/DL (5.7-8.2)
[2023-02-09 15:36] LABS: C REACTIVE PROTEIN QUANTITATIV 2.7 MG/DL (<1.0)
[2023-02-09 15:38] LABS: THYROID STIMULATING HORMONE 0.928 uIU/ML (0.55-4.78)
[2023-02-09 15:39] LABS: FREE T4 1.11 NG/DL (0.89-1.76)
[2023-02-09 15:46] LABS: ERYTHROCYTE SEDIMENTATION RATE 87 mm/hr (0-30)
[2023-02-09 18:10] VITALS: BP 123/84
== END 2023-02-09 18:22 | disposition home or self-care (01) ==
LOC: M ED 14:20 → EDBD 14:20 → M ED 18:22
DX: R22.43 Localized swelling, mass and lump, lower limb, bilateral (principal); I10 Essential (primary) hypertension; I48.91 Unspecified atrial fibrillation; I45.10 Unspecified right bundle-branch block; Z88.8 Allergy status to other drugs, medicaments and biological substances; Z79.01 Long term (current) use of anticoagulants; Z79.899 Other long term (current) drug therapy

== ENCOUNTER → 2023-02-24 | Outpatient (REF) | payer MEDICARE, MEDICAID ==
[2023-02-24 17:54] LABS: BASO % 0.3 % (0.0-1.0); EOS # 0.3 10^3/uL (0.0-0.5); EOS % 3.3 % (0.0-3.0); HEMATOCRIT 39.4 % (36.0-47.0); HEMOGLOBIN 12.3 g/dl (12.0-15.5); LYMPH # 1.5 10^3/uL (1.5-5.0); LYMPH % 15.9 % (24.0-44.0); MEAN CORPUSCULAR HEMOGLOBIN 30.2 pg (27.0-33.0); MEAN CORPUSCULAR HGB CONC 31.2 g/dl (32.0-36.5); MEAN CORPUSCULAR VOLUME 96.8 fl (80.0-96.0); MONO # 0.7 10^3/uL (0.0-0.8); MONO % 7.6 % (2.0-8.0); NEUTROPHILS # 6.6 10^3/uL (1.5-8.5); PLATELET COUNT, AUTOMATED 212 10^3/uL (150-450); RED BLOOD COUNT 4.07 10^6/uL (4.00-5.40); WHITE BLOOD COUNT 9.2 10^3/uL (4.0-10.0)
== END ==
LOC: M LAB REF 17:20
PROVIDERS: ATTEND Nurse Practitioner Family
DX: R68.89 Other general symptoms and signs (principal)

== ENCOUNTER 2023-02-28 05:05 | Emergency (ER) | payer MEDICARE, MEDICAID ==
[~2023-02-28] VITALS: Ht 165.1 cm; Wt 109.5 kg
[2023-02-28] MEDS ORDERED: GABAPENTIN 100 MG CAP PO ONE (06:00)
[2023-02-28 07:22] LABS: BASO % 0.4 % (0.0-1.0); EOS # 0.4 10^3/uL (0.0-0.5); HEMATOCRIT 34.9 % (36.0-47.0); LYMPH # 1.6 10^3/uL (1.5-5.0); LYMPH % 18.1 % (24.0-44.0); MEAN CORPUSCULAR HEMOGLOBIN 33.1 pg (27.0-33.0); MEAN CORPUSCULAR HGB CONC 34.4 g/dl (32.0-36.5); MEAN CORPUSCULAR VOLUME 96.4 fl (80.0-96.0); MONO # 0.5 10^3/uL (0.0-0.8); MONO % 5.8 % (2.0-8.0); NEUTROPHILS # 6.4 10^3/uL (1.5-8.5); PLATELET COUNT, AUTOMATED 202 10^3/uL (150-450); RED BLOOD COUNT 3.62 10^6/uL (4.00-5.40)
[2023-02-28 07:33] LABS: INR 1.5; PARTIAL THROMBOPLASTIN TIME 35.4 SECONDS (24.8-34.2); PROTHROMBIN TIME 18.4 SECONDS (12.5-14.5)
[2023-02-28 07:36] LABS: LIPASE 104 U/L (12-53)
[2023-02-28 07:39] LABS: ALBUMIN 3.2 G/DL (3.2-5.2); ALKALINE PHOSPHATASE 96 U/L (46-116); ALT/SGPT 18 U/L (7.0-40); AST/SGOT 15 U/L (<34); BILIRUBIN,DIRECT < 0.1 MG/DL (<0.4); BILIRUBIN,TOTAL 0.3 MG/DL (0.3-1.2); BLOOD UREA NITROGEN 89 MG/DL (9-23); CALCIUM LEVEL 8.3 MG/DL (8.3-10.6); CARBON DIOXIDE LEVEL 22 MMOL/L (20-31); CHLORIDE LEVEL 111 MMOL/L (98-107); CREATININE FOR GFR 3.07 MG/DL (0.55-1.30); ERYTHROCYTE SEDIMENTATION RATE 94 mm/hr (0-30); GLOMERULAR FILTRATION RATE 15.9 (>39); GLUCOSE, FASTING 92 MG/DL (74-106); POTASSIUM SERUM 4.4 MMOL/L (3.5-5.1); SODIUM LEVEL 143 MMOL/L (136-145); TOTAL PROTEIN 6.6 G/DL (5.7-8.2)
[2023-02-28 10:16] VITALS: BP 147/76
== END 2023-02-28 10:16 | disposition home or self-care (01) ==
LOC: EDBD 05:05 → M ED 05:05
DX: N18.4 Chronic kidney disease, stage 4 (severe) (principal); M79.10 Myalgia, unspecified site; I48.91 Unspecified atrial fibrillation; Z86.73 Personal history of transient ischemic attack (TIA), and cerebral infarction without residual deficits; I51.7 Cardiomegaly; Z86.72 Personal history of thrombophlebitis; Z87.891 Personal history of nicotine dependence; Z88.8 Allergy status to other drugs, medicaments and biological substances; Z79.01 Long term (current) use of anticoagulants; Z79.899 Other long term (current) drug therapy

== ENCOUNTER 2023-10-18 12:32 | Emergency (ER) | payer MEDICARE, MEDICAID ==
[~2023-10-18] VITALS: Ht 154.9 cm; Wt 160.4 kg
[~2023-10-18 12:32] MED LIST changes: +EZET10TA58 PO; -ZETI10TA16 PO
[2023-10-18 13:02] VITALS: TEMP 98.4
[2023-10-18] MEDS ORDERED: VITA200032 (13:11)
[2023-10-18 15:06] LABS: BASO % 0.4 % (0.0-1.0); EOS # 0.3 10^3/uL (0.0-0.5); EOS % 2.9 % (0.0-3.0); HEMATOCRIT 35.4 % (36.0-47.0); HEMOGLOBIN 11.2 g/dl (12.0-15.5); LYMPH # 1.3 10^3/uL (1.5-5.0); LYMPH % 13.6 % (24.0-44.0); MEAN CORPUSCULAR HEMOGLOBIN 30.5 pg (27.0-33.0); MEAN CORPUSCULAR HGB CONC 31.6 g/dl (32.0-36.5); MEAN CORPUSCULAR VOLUME 96.5 fl (80.0-96.0); MONO # 0.7 10^3/uL (0.0-0.8); MONO % 7.6 % (2.0-8.0); NEUTROPHILS # 7.1 10^3/uL (1.5-8.5); NEUTROPHILS % 75.1 % (36.0-66.0); PLATELET COUNT, AUTOMATED 166 10^3/uL (150-450); RED BLOOD COUNT 3.67 10^6/uL (4.00-5.40); WHITE BLOOD COUNT 9.4 10^3/uL (4.0-10.0)
[2023-10-18 15:15] LABS: ERYTHROCYTE SEDIMENTATION RATE 65 mm/hr (0-30)
[2023-10-18 15:22] LABS: C REACTIVE PROTEIN QUANTITATIV 1.8 MG/DL (<1.0)
[2023-10-18 15:24] LABS: CALCIUM LEVEL 8.3 MG/DL (8.3-10.6); CREATININE FOR GFR 1.74 MG/DL (0.55-1.30); GLOMERULAR FILTRATION RATE 30.7 (>39); POTASSIUM SERUM 4.8 MMOL/L (3.5-5.1)
[2023-10-18 18:24] VITALS: BP 211/108; O2SAT 96
[2023-10-18] MEDS ORDERED: CEPHALEXIN 500 MG CAP PO ONE ×2 (19:20)
[2023-10-18] MEDS ORDERED: CEPH500C PO (19:27)
== END 2023-10-18 20:20 | disposition home or self-care (01) ==
LOC: M ED 12:32 → EDBD 12:32 → M ED 20:20
DX: L03.115 Cellulitis of right lower limb (principal); I10 Essential (primary) hypertension; C64.9 Malignant neoplasm of unspecified kidney, except renal pelvis; Z86.79 Personal history of other diseases of the circulatory system; Z88.8 Allergy status to other drugs, medicaments and biological substances; Z79.01 Long term (current) use of anticoagulants; Z79.899 Other long term (current) drug therapy

== ENCOUNTER 2023-12-07 10:29 | Emergency (ER) | payer MEDICARE, MEDICAID ==
[~2023-12-07] VITALS: Ht 154.9 cm; Wt 115.8 kg
[~2023-12-07 10:29] MED LIST changes: +CEPH500C PO; -HYDR-3911 PO; +HYDR50TA46 PO; +VITA200032
[2023-12-07 11:09] LABS: BASO % 0.4 % (0.0-1.0); EOS # 0.2 10^3/uL (0.0-0.5); HEMATOCRIT 36.3 % (36.0-47.0); HEMOGLOBIN 11.7 g/dl (12.0-15.5); LYMPH # 1.1 10^3/uL (1.5-5.0); LYMPH % 14.6 % (24.0-44.0); MEAN CORPUSCULAR HGB CONC 32.2 g/dl (32.0-36.5); MEAN CORPUSCULAR VOLUME 96.3 fl (80.0-96.0); MONO # 0.4 10^3/uL (0.0-0.8); NEUTROPHILS # 5.6 10^3/uL (1.5-8.5); NEUTROPHILS % 75.7 % (36.0-66.0); PLATELET COUNT, AUTOMATED 160 10^3/uL (150-450); RED BLOOD COUNT 3.77 10^6/uL (4.00-5.40); WHITE BLOOD COUNT 7.4 10^3/uL (4.0-10.0)
[2023-12-07 11:21] LABS: INR 1.34; PROTHROMBIN TIME 16.2 SECONDS (12.5-14.5)
[2023-12-07 11:32] VITALS: TEMP 98.1
[2023-12-07] MEDS ORDERED: ATOR1TAB21 (11:34)
[2023-12-07 11:40] LABS: CK-MB VALUE MASS < 1.0 NG/ML (<3.6)
[2023-12-07 11:44] LABS: ALBUMIN 3.6 G/DL (3.2-5.2); ALKALINE PHOSPHATASE 110 U/L (46-116); ALT/SGPT 14 U/L (7.0-40); AST/SGOT 17 U/L (<34); BILIRUBIN,DIRECT 0.2 MG/DL (<0.4); BILIRUBIN,TOTAL 0.6 MG/DL (0.3-1.2); BLOOD UREA NITROGEN 34 MG/DL (9-23); CALCIUM LEVEL 8.8 MG/DL (8.3-10.6); CARBON DIOXIDE LEVEL 25 MMOL/L (20-31); CHLORIDE LEVEL 113 MMOL/L (98-107); CREATININE FOR GFR 1.77 MG/DL (0.55-1.30); GLOMERULAR FILTRATION RATE 30.1 (>39); GLUCOSE, FASTING 111 MG/DL (74-106); POTASSIUM SERUM 4.3 MMOL/L (3.5-5.1); SODIUM LEVEL 144 MMOL/L (136-145); THYROID STIMULATING HORMONE 1.755 uIU/ML (0.55-4.78); TOTAL PROTEIN 6.9 G/DL (5.7-8.2)
[2023-12-07 11:45] LABS: FREE T4 1.18 NG/DL (0.89-1.76)
[2023-12-07 11:46] LABS: CPK CREATINE PHOSPHOKINASE 63 U/L (34-145); MB/CK RELATIVE INDEX 1.58 (< OR =4)
[2023-12-07] MEDS ORDERED: LABETALOL 100MG/20ML VIAL IV STA (12:38)
[2023-12-07] MEDS ORDERED: FUROSEMIDE 100MG/10ML VIAL IV ONE (12:40)
[2023-12-07 14:30] VITALS: BP 177/87
[2023-12-07 14:45] VITALS: O2SAT 97
== END 2023-12-07 15:00 | disposition home or self-care (01) ==
LOC: M ED 10:29 → EDBD 10:29 → M ED 15:00
DX: I50.9 Heart failure, unspecified (principal); I48.91 Unspecified atrial fibrillation; I10 Essential (primary) hypertension; N18.9 Chronic kidney disease, unspecified; Z79.01 Long term (current) use of anticoagulants; Z79.899 Other long term (current) drug therapy; Z88.8 Allergy status to other drugs, medicaments and biological substances
CPT/HCPCS: 71045; 80048; 80076; 82550; 82553; 84439; 84443; 84484; 85025; 85610; 85730; 93005; 93041; 93971; 94760; 96374; 96375; 99285; J1920; J1940

== ENCOUNTER → 2024-01-07 | Outpatient (REF) | payer MEDICARE, MEDICAID ==
[~2024-01-07] MED LIST changes: +ATOR1TAB21
[2024-01-07 17:18] LABS: BASO % 0.2 % (0.0-1.0); EOS # 0.2 10^3/uL (0.0-0.5); EOS % 2.6 % (0.0-3.0); HEMATOCRIT 34.3 % (36.0-47.0); HEMOGLOBIN 10.7 g/dl (12.0-15.5); LYMPH # 1.1 10^3/uL (1.5-5.0); LYMPH % 11.9 % (24.0-44.0); MEAN CORPUSCULAR HEMOGLOBIN 30.7 pg (27.0-33.0); MEAN CORPUSCULAR HGB CONC 31.2 g/dl (32.0-36.5); MEAN CORPUSCULAR VOLUME 98.3 fl (80.0-96.0); MONO # 0.7 10^3/uL (0.0-0.8); MONO % 8.2 % (2.0-8.0); NEUTROPHILS # 6.9 10^3/uL (1.5-8.5); NEUTROPHILS % 76.4 % (36.0-66.0); PLATELET COUNT, AUTOMATED 168 10^3/uL (150-450); RED BLOOD COUNT 3.49 10^6/uL (4.00-5.40)
[2024-01-07 17:53] LABS: ALBUMIN 3.4 G/DL (3.2-5.2); BILIRUBIN,TOTAL 0.4 MG/DL (0.3-1.2); CALCIUM LEVEL 8.6 MG/DL (8.3-10.6); CREATININE FOR GFR 1.79 MG/DL (0.55-1.30); GLOMERULAR FILTRATION RATE 29.7 (>39); POTASSIUM SERUM 4.9 MMOL/L (3.5-5.1); TOTAL PROTEIN 6.6 G/DL (5.7-8.2)
== END ==
LOC: M LAB REF 16:19
PROVIDERS: ATTEND Nurse Practitioner Family
DX: I50.9 Heart failure, unspecified (principal)

== ENCOUNTER 2024-03-17 11:15 | Emergency (ER) | payer MEDICARE, MEDICAID ==
[~2024-03-17] VITALS: Ht 154.9 cm; Wt 117.6 kg
[2024-03-17] MEDS ORDERED: FURO80TA2 PO (11:30)
[2024-03-17 11:50] LABS: BASO % 0.4 % (0.0-1.0); EOS # 0.2 10^3/uL (0.0-0.5); EOS % 2.8 % (0.0-3.0); HEMATOCRIT 35.3 % (36.0-47.0); LYMPH # 1.1 10^3/uL (1.5-5.0); LYMPH % 14.2 % (24.0-44.0); MEAN CORPUSCULAR HEMOGLOBIN 29.9 pg (27.0-33.0); MEAN CORPUSCULAR HGB CONC 31.2 g/dl (32.0-36.5); MEAN CORPUSCULAR VOLUME 95.9 fl (80.0-96.0); MONO # 0.7 10^3/uL (0.0-0.8); MONO % 8.5 % (2.0-8.0); NEUTROPHILS # 5.7 10^3/uL (1.5-8.5); NEUTROPHILS % 73.7 % (36.0-66.0); PLATELET COUNT, AUTOMATED 164 10^3/uL (150-450); RED BLOOD COUNT 3.68 10^6/uL (4.00-5.40); WHITE BLOOD COUNT 7.7 10^3/uL (4.0-10.0)
[2024-03-17 12:07] LABS: INR 2.42; PROTHROMBIN TIME 25.5 SECONDS (12.5-14.5)
[2024-03-17 12:21] LABS: CALCIUM LEVEL 8.1 MG/DL (8.3-10.6); CREATININE FOR GFR 1.85 MG/DL (0.55-1.30); GLOMERULAR FILTRATION RATE 28.5 (>39); POTASSIUM SERUM 4.3 MMOL/L (3.5-5.1)
[2024-03-17 12:26] LABS: FREE T4 1.14 NG/DL (0.89-1.76); THYROID STIMULATING HORMONE 1.206 uIU/ML (0.55-4.78)
[2024-03-17 15:38] VITALS: BP 219/108
[2024-03-17] MEDS: METOPROLOL TARTRATE 100MG TAB PO ONE (15:38)
[2024-03-17 17:15] VITALS: O2SAT 97
[2024-03-17 17:19] VITALS: BP 209/97
[2024-03-17 17:34] VITALS: TEMP 96.6
== END 2024-03-17 17:36 | disposition home or self-care (01) ==
LOC: M ED 11:15 → EDBD 11:15 → M ED 17:36
DX: R00.2 Palpitations (principal); I50.22 Chronic systolic (congestive) heart failure; I48.91 Unspecified atrial fibrillation; Z79.899 Other long term (current) drug therapy

== ENCOUNTER 2024-06-10 11:51 | Emergency (ER) | payer MEDICARE, MEDICAID ==
[~2024-06-10] VITALS: Ht 154.9 cm; Wt 110.9 kg
[~2024-06-10 11:51] MED LIST changes: +FURO80TA2 PO
[2024-06-10 12:08] VITALS: TEMP 97.6
[2024-06-10] MEDS: ASPIRIN 81MG CHEW TABLET PO ONE (12:38)
[2024-06-10] MEDS: NITROGLYCERIN 0.4MG SUBL TABLET SL PRN (12:40)
[2024-06-10 12:43] LABS: BASO % 0.5 % (0.0-1.0); EOS # 0.2 10^3/uL (0.0-0.5); EOS % 2.8 % (0.0-3.0); HEMATOCRIT 36.5 % (36.0-47.0); HEMOGLOBIN 11.5 g/dl (12.0-15.5); LYMPH # 1.2 10^3/uL (1.5-5.0); LYMPH % 15.2 % (24.0-44.0); MEAN CORPUSCULAR HEMOGLOBIN 29.7 pg (27.0-33.0); MEAN CORPUSCULAR HGB CONC 31.5 g/dl (32.0-36.5); MEAN CORPUSCULAR VOLUME 94.3 fl (80.0-96.0); MONO # 0.6 10^3/uL (0.0-0.8); MONO % 8.4 % (2.0-8.0); NEUTROPHILS # 5.5 10^3/uL (1.5-8.5); NEUTROPHILS % 72.7 % (36.0-66.0); PLATELET COUNT, AUTOMATED 170 10^3/uL (150-450); RED BLOOD COUNT 3.87 10^6/uL (4.00-5.40); WHITE BLOOD COUNT 7.6 10^3/uL (4.0-10.0)
[2024-06-10 13:02] VITALS: BP 174/77
[2024-06-10 13:05] LABS: INR 2.96; PROTHROMBIN TIME 29.8 SECONDS (12.5-14.5)
[2024-06-10 13:49] LABS: CK-MB VALUE MASS < 1.0 NG/ML (<3.6); LIPASE 56 U/L (12-53)
[2024-06-10 13:51] LABS: ALBUMIN 3.5 G/DL (3.2-5.2); ALKALINE PHOSPHATASE 112 U/L (46-116); ALT/SGPT 11 U/L (7.0-40); AST/SGOT 12 U/L (<34); BILIRUBIN,DIRECT 0.1 MG/DL (<0.4); BILIRUBIN,TOTAL 0.4 MG/DL (0.3-1.2); BLOOD UREA NITROGEN 37 MG/DL (9-23); CALCIUM LEVEL 8.8 MG/DL (8.3-10.6); CARBON DIOXIDE LEVEL 22 MMOL/L (20-31); CHLORIDE LEVEL 113 MMOL/L (98-107); CREATININE FOR GFR 1.82 MG/DL (0.55-1.30); GLOMERULAR FILTRATION RATE 29.1 (>39); GLUCOSE, FASTING 93 MG/DL (74-106); POTASSIUM SERUM 4.4 MMOL/L (3.5-5.1); SODIUM LEVEL 143 MMOL/L (136-145); TOTAL PROTEIN 6.9 G/DL (5.7-8.2)
[2024-06-10 13:53] LABS: FREE T4 1.12 NG/DL (0.89-1.76); THYROID STIMULATING HORMONE 0.872 uIU/ML (0.55-4.78)
[2024-06-10 13:57] LABS: CPK CREATINE PHOSPHOKINASE 73 U/L (34-145); MB/CK RELATIVE INDEX 1.36 (< OR =4)
[2024-06-10 15:02] LABS: MB/CK RELATIVE INDEX 3.57 (< OR =4)
[2024-06-10] MEDS: LIDOCAINE VISCOUS 2% SOLN 15ML UDC PO ONE (15:10)
[2024-06-10] MEDS: MAALOX 30 ML SUSP *UDC PO ONE (15:10)
[2024-06-10] MEDS: FUROSEMIDE 40MG/4ML VIAL IV ONE (16:30)
[2024-06-10 18:15] VITALS: BP 187/93
[2024-06-10 18:19] VITALS: O2SAT 97
[2024-06-10] MEDS ORDERED: PROT1TAB2 PO (18:37)
[2024-06-10 19:02] VITALS: O2SAT 96
== END 2024-06-10 19:16 | disposition home or self-care (01) ==
LOC: EDBD 11:51 → M ED 11:51
DX: K21.9 Gastro-esophageal reflux disease without esophagitis (principal); I50.22 Chronic systolic (congestive) heart failure; I45.10 Unspecified right bundle-branch block; I48.91 Unspecified atrial fibrillation; E78.5 Hyperlipidemia, unspecified; N18.4 Chronic kidney disease, stage 4 (severe); Z88.8 Allergy status to other drugs, medicaments and biological substances; Z79.899 Other long term (current) drug therapy
CPT/HCPCS: 71045; 80047; 80048; 80076; 82550; 82553; 83690; 83880; 84439; 84443; 84484; 85025; 85610; 93005; 93041; 94760; 96374; 99285; J1940

== ENCOUNTER → 2024-07-05 | Outpatient (REF) | payer MEDICARE, MEDICAID ==
[~2024-07-05] MED LIST changes: +PROT1TAB2 PO
[2024-07-05 18:28] LABS: FERRITIN 80.6 NG/ML (7.3-270.7)
[2024-07-05 18:37] LABS: PERCENT SATURATION 16.8 % (13.2-45.0)
== END ==
LOC: M LAB REF 17:17
PROVIDERS: ATTEND Nurse Practitioner Family
DX: D50.9 Iron deficiency anemia, unspecified (principal)

== ENCOUNTER 2024-07-09 04:52 | Emergency (ER) | payer MEDICARE, MEDICAID ==
[~2024-07-09] VITALS: Ht 154.9 cm; Wt 114.0 kg
[2024-07-09 09:01] VITALS: BP 185/81
[2024-07-09 09:52] VITALS: TEMP 96.6; O2SAT 97
== END 2024-07-09 10:48 | disposition home or self-care (01) ==
LOC: EDBD 04:52 → M ED 04:52
DX: M25.562 Pain in left knee (principal); W06.XXXA Fall from bed, initial encounter; I10 Essential (primary) hypertension; Z86.718 Personal history of other venous thrombosis and embolism; Z86.79 Personal history of other diseases of the circulatory system; Z88.8 Allergy status to other drugs, medicaments and biological substances; Z79.02 Long term (current) use of antithrombotics/antiplatelets; Z79.01 Long term (current) use of anticoagulants; Z79.899 Other long term (current) drug therapy; Y92.009 Unspecified place in unspecified non-institutional (private) residence as the place of occurrence of the external cause; Y93.89 Activity, other specified; Y99.9 Unspecified external cause status

== ENCOUNTER → 2024-07-19 | Outpatient (REF) | payer MEDICARE, MEDICAID ==
[~2024-07-19] MED LIST changes: +CETI-24 PO; +ERGO500029; +FURO40TA2; +MOME50SP2 NARES
[2024-07-19 18:25] LABS: BASO % 0.3 % (0.0-1.0); EOS # 0.2 10^3/uL (0.0-0.5); EOS % 2.7 % (0.0-3.0); HEMATOCRIT 34.7 % (36.0-47.0); HEMOGLOBIN 10.9 g/dl (12.0-15.5); LYMPH # 1.3 10^3/uL (1.5-5.0); LYMPH % 14.7 % (24.0-44.0); MEAN CORPUSCULAR HEMOGLOBIN 30.8 pg (27.0-33.0); MEAN CORPUSCULAR HGB CONC 31.4 g/dl (32.0-36.5); MONO # 0.7 10^3/uL (0.0-0.8); NEUTROPHILS # 6.4 10^3/uL (1.5-8.5); PLATELET COUNT, AUTOMATED 172 10^3/uL (150-450); RED BLOOD COUNT 3.54 10^6/uL (4.00-5.40); WHITE BLOOD COUNT 8.6 10^3/uL (4.0-10.0)
[2024-07-19 18:36] LABS: ALBUMIN 3.8 G/DL (3.2-5.2); BILIRUBIN,TOTAL 0.5 MG/DL (0.3-1.2); CALCIUM LEVEL 9.1 MG/DL (8.3-10.6); CREATININE FOR GFR 1.95 MG/DL (0.55-1.30); FERRITIN 60.1 NG/ML (7.3-270.7); FOLATE 18.5 NG/ML (>5.4); GLOMERULAR FILTRATION RATE 26.8 (>39); PERCENT SATURATION 12.1 % (13.2-45.0); POTASSIUM SERUM 4.9 MMOL/L (3.5-5.1); TOTAL PROTEIN 7.2 G/DL (5.7-8.2)
== END ==
LOC: M LAB REF 17:36
PROVIDERS: ATTEND Nurse Practitioner Family
DX: E66.01 Morbid (severe) obesity due to excess calories (principal); R53.83 Other fatigue; D50.9 Iron deficiency anemia, unspecified

== ENCOUNTER 2024-07-21 11:51 | Emergency (ER) | payer MEDICARE, MEDICAID ==
[~2024-07-21] VITALS: Ht 154.9 cm; Wt 116.8 kg
[~2024-07-21 11:51] MED LIST changes: -CETI-24 PO; -ERGO500029; -FURO40TA2; -MOME50SP2 NARES
[2024-07-21] MEDS ORDERED: FURO40TA2 (12:11)
[2024-07-21] MEDS ORDERED: ERGO500029 (12:11)
[2024-07-21] MEDS ORDERED: MOME50SP2 NARES (13:51)
[2024-07-21] MEDS ORDERED: CETI-24 PO (13:51)
[2024-07-21 14:17] VITALS: BP 168/81; TEMP 97.9; O2SAT 97
== END 2024-07-21 14:20 | disposition home or self-care (01) ==
LOC: M ED 11:51
DX: J30.9 Allergic rhinitis, unspecified (principal); I50.22 Chronic systolic (congestive) heart failure; I11.0 Hypertensive heart disease with heart failure; E78.5 Hyperlipidemia, unspecified; N18.9 Chronic kidney disease, unspecified; Z88.8 Allergy status to other drugs, medicaments and biological substances; Z79.899 Other long term (current) drug therapy; Z79.01 Long term (current) use of anticoagulants

== ENCOUNTER 2024-10-10 06:32 | Emergency (ER) | payer MEDICARE, MEDICAID ==
[~2024-10-10] VITALS: Ht 154.9 cm; Wt 116.8 kg
[~2024-10-10 06:32] MED LIST changes: +CETI-24 PO; +ERGO500029; +FURO40TA2; +MOME50SP2 NARES
[2024-10-10 06:41] VITALS: TEMP 96.7
[2024-10-10 07:14] LABS: BASO % 0.4 % (0.0-1.0); EOS # 0.4 10^3/uL (0.0-0.5); EOS % 4.8 % (0.0-3.0); HEMATOCRIT 34.5 % (36.0-47.0); HEMOGLOBIN 10.8 g/dl (12.0-15.5); LYMPH # 1.1 10^3/uL (1.5-5.0); LYMPH % 13.4 % (24.0-44.0); MEAN CORPUSCULAR HEMOGLOBIN 29.7 pg (27.0-33.0); MEAN CORPUSCULAR HGB CONC 31.3 g/dl (32.0-36.5); MEAN CORPUSCULAR VOLUME 94.8 fl (80.0-96.0); MONO # 0.6 10^3/uL (0.0-0.8); MONO % 7.6 % (2.0-8.0); NEUTROPHILS % 73.1 % (36.0-66.0); PLATELET COUNT, AUTOMATED 177 10^3/uL (150-450); RED BLOOD COUNT 3.64 10^6/uL (4.00-5.40); WHITE BLOOD COUNT 8.2 10^3/uL (4.0-10.0)
[2024-10-10 08:14] LABS: ALBUMIN 3.4 G/DL (3.2-5.2); ALKALINE PHOSPHATASE 118 U/L (35-104); ALT/SGPT 11 U/L (7.0-40); AST/SGOT 12 U/L (<34); BILIRUBIN,TOTAL 0.6 MG/DL (0.3-1.2); BLOOD UREA NITROGEN 42 MG/DL (9-23); CARBON DIOXIDE LEVEL 23 MMOL/L (20-31); CHLORIDE LEVEL 108 MMOL/L (98-107); CPK CREATINE PHOSPHOKINASE 53 U/L (34-145); CREATININE FOR GFR 2.21 MG/DL (0.55-1.30); GLOMERULAR FILTRATION RATE 23.2 (>39); GLUCOSE, FASTING 103 MG/DL (74-106); MAGNESIUM LEVEL 2.3 MG/DL (1.8-2.4); POTASSIUM SERUM 4.8 MMOL/L (3.5-5.1); SODIUM LEVEL 140 MMOL/L (136-145); THYROID STIMULATING HORMONE 1.971 uIU/ML (0.55-4.78); TOTAL PROTEIN 7.5 G/DL (5.7-8.2)
[2024-10-10 08:26] LABS: CK-MB VALUE MASS < 1.0 NG/ML (<3.6); MB/CK RELATIVE INDEX 1.88 (< OR =4)
[2024-10-10 08:29] LABS: INR 1.29; PROTHROMBIN TIME 16.4 SECONDS (12.5-14.5)
[2024-10-10 10:45] VITALS: BP 155/72; O2SAT 97
== END 2024-10-10 11:00 | disposition home or self-care (01) ==
LOC: M ED 06:32 → EDBD 06:32 → M ED 11:00
DX: I87.2 Venous insufficiency (chronic) (peripheral) (principal); N18.4 Chronic kidney disease, stage 4 (severe); I48.91 Unspecified atrial fibrillation; I45.19 Other right bundle-branch block; I50.22 Chronic systolic (congestive) heart failure; I11.0 Hypertensive heart disease with heart failure; Z88.8 Allergy status to other drugs, medicaments and biological substances; Z79.899 Other long term (current) drug therapy; Z79.01 Long term (current) use of anticoagulants

== ENCOUNTER 2024-10-24 06:16 | Observation (INO) | payer MEDICARE, MEDICAID ==
[~2024-10-24] VITALS: Ht 154.9 cm; Wt 113.8 kg
[~2024-10-24 06:16] MED LIST changes: -CALC1CAP31; -ERGO500029; +ERGO500029 PO; -FURO40TA2; +WARF-23 PO
[2024-10-24 06:54] LABS: BASO % 0.3 % (0.0-1.0); EOS # 0.3 10^3/uL (0.0-0.5); HEMOGLOBIN 11.4 g/dl (12.0-15.5); LYMPH # 1.3 10^3/uL (1.5-5.0); MEAN CORPUSCULAR HEMOGLOBIN 30.1 pg (27.0-33.0); MEAN CORPUSCULAR HGB CONC 31.7 g/dl (32.0-36.5); MONO # 0.7 10^3/uL (0.0-0.8); MONO % 7.5 % (2.0-8.0); NEUTROPHILS # 7.3 10^3/uL (1.5-8.5); NEUTROPHILS % 75.5 % (36.0-66.0); PLATELET COUNT, AUTOMATED 222 10^3/uL (150-450); RED BLOOD COUNT 3.79 10^6/uL (4.00-5.40); WHITE BLOOD COUNT 9.7 10^3/uL (4.0-10.0)
[2024-10-24 06:58] LABS: ERYTHROCYTE SEDIMENTATION RATE 104 mm/hr (0-30)
[2024-10-24 07:23] LABS: C REACTIVE PROTEIN QUANTITATIV 3.23 MG/DL (<1.0); CALCIUM LEVEL 9.5 MG/DL (8.3-10.6); CREATININE FOR GFR 2.45 MG/DL (0.55-1.30); GLOMERULAR FILTRATION RATE 20.6 (>39); POTASSIUM SERUM 4.7 MMOL/L (3.5-5.1)
[2024-10-24] MEDS: VANCOMYCIN/WATER FOR INJ (PEG) 2,000 MG in IV 1 EA IV ONE (08:04)
[2024-10-24] MEDS ORDERED: FERR325T3 PO (08:43)
[2024-10-24] MEDS ORDERED: ALLO300T2 PO (08:43)
[2024-10-24] MEDS ORDERED: ACET-683 PO (08:45)
[2024-10-24] MEDS ORDERED: HOME MED LIST COMPLETE! XX SCH (08:45)
[2024-10-24] MEDS ORDERED: ACETAMINOPHEN 500 MG TAB PO PRN (11:00)
[2024-10-24] MEDS: allopurinoL 300 MG TAB PO SCH (11:25)
[2024-10-24] MEDS: METOPROLOL TARTRATE 100MG TAB PO SCH (11:25)
[2024-10-24] MEDS: MUPIROCIN 2% OINT 22 GM TUBE TOP SCH (11:25)
[2024-10-24] MEDS: NS 1,000 ML IV ONE (11:54)
[2024-10-24] MEDS: cefTRIAXone SOD 1 GM in DEXTROSE 5% (D5W) ADV/MINI-BAG 50 ML IV SCH (11:54)
[2024-10-24 12:37] LABS: INR 1.28; PROTHROMBIN TIME 16.3 SECONDS (12.5-14.5)
[2024-10-24] MEDS ORDERED: **hydrALAZINE HCL** 25 MG TAB PO PRN (13:25)
[2024-10-24 14:30] VITALS: BP 157/90; TEMP 97.5; O2SAT 93
[2024-10-24] MEDS: ONDANSETRON 4MG TAB PO PRN (15:33)
[2024-10-24] MEDS: WARFARIN SOD 7.5MG TAB PO SCH (17:39)
[2024-10-24 19:42] VITALS: BP 153/79; TEMP 96.8; O2SAT 94
[2024-10-24] MEDS: NYSTATIN OINTMENT 15 GM TOP SCH (20:44)
[2024-10-25 04:18] VITALS: BP 153/79; TEMP 96.8; O2SAT 95
[2024-10-25 07:15] LABS: HEMATOCRIT 30.1 % (36.0-47.0); HEMOGLOBIN 9.6 g/dl (12.0-15.5); MEAN CORPUSCULAR HEMOGLOBIN 29.8 pg (27.0-33.0); MEAN CORPUSCULAR HGB CONC 31.9 g/dl (32.0-36.5); MEAN CORPUSCULAR VOLUME 93.5 fl (80.0-96.0); PLATELET COUNT, AUTOMATED 165 10^3/uL (150-450); RED BLOOD COUNT 3.22 10^6/uL (4.00-5.40); WHITE BLOOD COUNT 8.3 10^3/uL (4.0-10.0)
[2024-10-25 07:40] LABS: INR 1.5; PROTHROMBIN TIME 18.4 SECONDS (12.5-14.5)
[2024-10-25 07:47] LABS: CALCIUM LEVEL 8.7 MG/DL (8.3-10.6); CREATININE FOR GFR 2.56 MG/DL (0.55-1.30); GLOMERULAR FILTRATION RATE 19.6 (>39); POTASSIUM SERUM 4.6 MMOL/L (3.5-5.1)
[2024-10-25 08:02] VITALS: BP 134/68
[2024-10-25] MEDS: METOPROLOL TART 50 MG TAB PO SCH (08:02)
[2024-10-25] MEDS: FERROUS SULFATE 325MG TAB PO SCH (08:03)
[2024-10-25] MEDS: CALCITRIOL 0.25 MCG CAP (S0169) PO SCH (08:03)
[2024-10-25 08:38] LABS: PROCALCITONIN 0.08 ng/ml
[2024-10-25] MEDS: SODIUM CHLORIDE 0.9% 500 ML IV ONE (12:06)
[2024-10-25 12:18] VITALS: BP 147/76; TEMP 97.5; O2SAT 94
[2024-10-25 14:04] LABS: CREATININE FOR GFR 2.5 MG/DL (0.55-1.30); GLOMERULAR FILTRATION RATE 20.2 (>39); POTASSIUM SERUM 4.8 MMOL/L (3.5-5.1)
[2024-10-25 17:12] LABS: CALCIUM LEVEL 8.7 MG/DL (8.3-10.6); CREATININE FOR GFR 2.49 MG/DL (0.55-1.30); GLOMERULAR FILTRATION RATE 20.2 (>39); POTASSIUM SERUM 4.5 MMOL/L (3.5-5.1)
[2024-10-25] MEDS: NS 1,000 ML IV SCH (18:12)
[2024-10-25] MEDS ORDERED: CEFD300CAP PO (18:49)
[2024-10-25] MEDS ORDERED: WARF-23 PO (18:49)
[2024-10-26] MEDS ORDERED: CEFDINIR 300 MG CAP (OMNICEF) PO SCH (09:00)
== END 2024-10-25 19:30 | disposition home or self-care (01) ==
LOC: M ED 06:16 → EDBD 06:16 → M ED INP 10:22 → M MS5PR 14:30
PROVIDERS: ADMIT Internal Medicine; ATTEND Internal Medicine
DX: I87.2 Venous insufficiency (chronic) (peripheral) (principal); L03.115 Cellulitis of right lower limb; L03.116 Cellulitis of left lower limb; I89.0 Lymphedema, not elsewhere classified; M79.89 Other specified soft tissue disorders; B95.7 Other staphylococcus as the cause of diseases classified elsewhere; R94.4 Abnormal results of kidney function studies; N18.30 Chronic kidney disease, stage 3 unspecified; R29.6 Repeated falls; M81.0 Age-related osteoporosis without current pathological fracture; I48.91 Unspecified atrial fibrillation; I50.32 Chronic diastolic (congestive) heart failure; Z86.73 Personal history of transient ischemic attack (TIA), and cerebral infarction without residual deficits; D50.9 Iron deficiency anemia, unspecified; M10.9 Gout, unspecified; L30.4 Erythema intertrigo; Z82.49 Family history of ischemic heart disease and other diseases of the circulatory system; Z84.1 Family history of disorders of kidney and ureter; Z80.0 Family history of malignant neoplasm of digestive organs; Z87.891 Personal history of nicotine dependence; Z88.8 Allergy status to other drugs, medicaments and biological substances; Z79.899 Other long term (current) drug therapy; Z79.01 Long term (current) use of anticoagulants; Z66 Do not resuscitate
CPT/HCPCS: 36415; 72110; 73521; 80048; 83605; 83880; 84145; 85025; 85027; 85610; 85652; 86140; 87040; 87077; 87154; 87186; 93925; 93970; 96365; 96366; 96367; 96376; 97116; 97161; 97530; 99285; G0378; J0696; J3372

== ENCOUNTER 2024-12-12 08:26 | Inpatient (IN) | payer MEDICARE, MEDICAID ==
[~2024-12-12] VITALS: Ht 154.9 cm; Wt 108.9 kg
[~2024-12-12 08:26] MED LIST changes: +ACET-683 PO; +CEFD300CAP PO; +FERR325T3 PO
[2024-12-12] MEDS ORDERED: ATOR1TAB21 PO (08:42)
[2024-12-12] MEDS ORDERED: WARFARIN SOD 7.5MG TAB PO SCH (09:00)
[2024-12-12 09:15] LABS: BASO # 0.1 10^3/uL (0.0-0.2); BASO % 0.6 % (0.0-1.0); EOS # 0.5 10^3/uL (0.0-0.5); EOS % 5.9 % (0.0-3.0); HEMATOCRIT 33.6 % (36.0-47.0); HEMOGLOBIN 10.3 g/dl (12.0-15.5); LYMPH # 0.9 10^3/uL (1.5-5.0); LYMPH % 10.3 % (24.0-44.0); MEAN CORPUSCULAR HEMOGLOBIN 29.9 pg (27.0-33.0); MEAN CORPUSCULAR HGB CONC 30.7 g/dl (32.0-36.5); MEAN CORPUSCULAR VOLUME 97.4 fl (80.0-96.0); MONO # 0.7 10^3/uL (0.0-0.8); MONO % 8.7 % (2.0-8.0); NEUTROPHILS # 6.1 10^3/uL (1.5-8.5); NEUTROPHILS % 73.3 % (36.0-66.0); PLATELET COUNT, AUTOMATED 211 10^3/uL (150-450); RED BLOOD COUNT 3.45 10^6/uL (4.00-5.40); WHITE BLOOD COUNT 8.4 10^3/uL (4.0-10.0)
[2024-12-12 09:41] LABS: ALBUMIN 2.9 G/DL (3.2-5.2); BILIRUBIN,DIRECT 0.1 MG/DL (<0.4); BILIRUBIN,TOTAL 0.3 MG/DL (0.3-1.2); CALCIUM LEVEL 8.6 MG/DL (8.3-10.6); CREATININE FOR GFR 3.59 MG/DL (0.55-1.30); GLOMERULAR FILTRATION RATE 13.3 (>39); POTASSIUM SERUM 5.9 MMOL/L (3.5-5.1); TOTAL PROTEIN 7.3 G/DL (5.7-8.2)
[2024-12-12 09:43] LABS: THYROID STIMULATING HORMONE 0.909 uIU/ML (0.55-4.78)
[2024-12-12 10:24] LABS: INR 1.49; PROTHROMBIN TIME 18.2 SECONDS (12.5-14.5)
[2024-12-12] MEDS ORDERED: WARF-23 PO (11:12)
[2024-12-12] MEDS ORDERED: HOME MED LIST COMPLETE! XX SCH (11:15)
[2024-12-12] MEDS ORDERED: ACETAMINOPHEN 325 MG TAB PO PRN (12:30)
[2024-12-12] MEDS ORDERED: MAALOX 30 ML SUSP *UDC PO PRN (12:30)
[2024-12-12] MEDS ORDERED: MOM 30ML SUSPENSION UDC PO PRN (12:30)
[2024-12-12] MEDS: PATIROMER SORBITEX CALCIUM 8.4 GM POWDER PACKET (VELTASSA) PO ONE (12:48)
[2024-12-12 13:21] LABS: PROCALCITONIN 0.19 ng/ml
[2024-12-12] MEDS: cefTRIAXone SOD 2 GM in DEXTROSE 5% (D5W) ADV/MINI-BAG 50 ML IV SCH (15:23)
[2024-12-12 16:29] LABS: CALCIUM LEVEL 8.2 MG/DL (8.3-10.6); CREATININE FOR GFR 3.44 MG/DL (0.55-1.30); GLOMERULAR FILTRATION RATE 13.9 (>39); POTASSIUM SERUM 4.9 MMOL/L (3.5-5.1)
[2024-12-12] MEDS: SODIUM BICARBONATE 75 MEQ in NS 0.45% 1,000 ML IV SCH (16:47)
[2024-12-12] MEDS: FUROSEMIDE 100MG/10ML VIAL IV ONE (17:52)
[2024-12-12 18:27] LABS: KETONE, URINE AUTO RFX NEGATIVE (NEGATIVE); RBC, URINE AUTO RFX 156 /HPF (0-3); SQUAM EPITHELIAL CELL UR AURFX 2 /HPF (0-6)
[2024-12-12 18:30] LABS: LEUKOCYTE ESTERASE UR AUTO RFX 3+ (NEGATIVE); NITRITE, URINE AUTO RFX POSITIVE (NEGATIVE); WBC, URINE AUTO RFX TNTC /HPF (0-3)
[2024-12-12] MEDS: CALCITRIOL 0.25 MCG CAP (S0169) PO SCH (18:51)
[2024-12-12] MEDS: WARFARIN SOD 7.5MG TAB PO SCH (18:52)
[2024-12-12] MEDS: ATORVASTATIN 20 MG TAB PO SCH (18:52)
[2024-12-12] MEDS: METOPROLOL TARTRATE 100MG TAB PO SCH (18:53)
[2024-12-12] MEDS ORDERED: PILL CUTTER 1 EACH XX ONE (20:00)
[2024-12-12] MEDS: DOCUSATE SODIUM 100MG CAPSULE PO SCH (20:05)
[2024-12-12 22:45] VITALS: BP 122/73; TEMP 98.6; O2SAT 98
[2024-12-12 23:40] VITALS: BP 123/72; TEMP 98.3; O2SAT 96
[2024-12-12] MEDS: ONDANSETRON 4MG 2ML VIAL IV PRN (23:44)
[2024-12-13 03:47] VITALS: BP 129/75; TEMP 98.6; O2SAT 97
[2024-12-13 08:15] VITALS: BP 131/74; TEMP 98.5; O2SAT 98
[2024-12-13 08:37] LABS: BASO % 0.5 % (0.0-1.0); EOS # 0.7 10^3/uL (0.0-0.5); EOS % 7.7 % (0.0-3.0); HEMATOCRIT 32.8 % (36.0-47.0); HEMOGLOBIN 10.4 g/dl (12.0-15.5); LYMPH % 11.4 % (24.0-44.0); MEAN CORPUSCULAR HEMOGLOBIN 30.5 pg (27.0-33.0); MEAN CORPUSCULAR HGB CONC 31.7 g/dl (32.0-36.5); MEAN CORPUSCULAR VOLUME 96.2 fl (80.0-96.0); MONO # 0.8 10^3/uL (0.0-0.8); MONO % 8.9 % (2.0-8.0); NEUTROPHILS # 6.2 10^3/uL (1.5-8.5); NEUTROPHILS % 70.5 % (36.0-66.0); PLATELET COUNT, AUTOMATED 221 10^3/uL (150-450); RED BLOOD COUNT 3.41 10^6/uL (4.00-5.40); WHITE BLOOD COUNT 8.8 10^3/uL (4.0-10.0)
[2024-12-13 09:08] LABS: CALCIUM LEVEL 8.4 MG/DL (8.3-10.6); CREATININE FOR GFR 3.42 MG/DL (0.55-1.30); MAGNESIUM LEVEL 2.3 MG/DL (1.8-2.4); POTASSIUM SERUM 5.2 MMOL/L (3.5-5.1)
[2024-12-13 09:14] LABS: INR 1.56; PROTHROMBIN TIME 18.9 SECONDS (12.5-14.5)
[2024-12-13] MEDS: FUROSEMIDE 100MG/10ML VIAL IV SCH (09:32)
[2024-12-13] MEDS: VITAMIN D 50,000 UNITS CAPSULE (ERGOCALCIFEROL 1.25MG) PO SCH (09:33)
[2024-12-13] MEDS: FLUBLOK(EGGFREE) TRIVAL(24-25) VACCINE PF 0.5ML SYRINGE 18YRS & OLDER IM.IMMUN ONE (09:36)
[2024-12-13 11:35] VITALS: BP 129/59; TEMP 98.7; O2SAT 96
[2024-12-13] MEDS: PATIROMER SORBITEX CALCIUM 8.4 GM POWDER PACKET (VELTASSA) PO ONE (12:59)
[2024-12-13 16:01] VITALS: BP 128/59; TEMP 98.2; O2SAT 98
[2024-12-13] MEDS: WARFARIN SOD 5MG TAB PO SCH (18:05)
[2024-12-13 19:07] VITALS: BP 153/65; TEMP 98.3; O2SAT 97
[2024-12-14] VITALS (9 sets, daily range): BP systolic 112–141; BP diastolic 55–70; PULSE 85; TEMP 97–98.5; O2SAT 93–97
[2024-12-14 05:43] LABS: BASO # 0.1 10^3/uL (0.0-0.2); BASO % 0.6 % (0.0-1.0); EOS # 0.9 10^3/uL (0.0-0.5); EOS % 10.8 % (0.0-3.0); HEMATOCRIT 32.7 % (36.0-47.0); HEMOGLOBIN 10.5 g/dl (12.0-15.5); LYMPH # 1.1 10^3/uL (1.5-5.0); LYMPH % 13.9 % (24.0-44.0); MEAN CORPUSCULAR HEMOGLOBIN 30.1 pg (27.0-33.0); MEAN CORPUSCULAR HGB CONC 32.1 g/dl (32.0-36.5); MEAN CORPUSCULAR VOLUME 93.7 fl (80.0-96.0); MONO # 0.8 10^3/uL (0.0-0.8); MONO % 9.5 % (2.0-8.0); NEUTROPHILS # 5.3 10^3/uL (1.5-8.5); NEUTROPHILS % 64.3 % (36.0-66.0); PLATELET COUNT, AUTOMATED 209 10^3/uL (150-450); RED BLOOD COUNT 3.49 10^6/uL (4.00-5.40); WHITE BLOOD COUNT 8.2 10^3/uL (4.0-10.0)
[2024-12-14 06:12] LABS: INR 1.72; PROTHROMBIN TIME 20.3 SECONDS (12.5-14.5)
[2024-12-14 06:13] LABS: CALCIUM LEVEL 8.2 MG/DL (8.3-10.6); CREATININE FOR GFR 3.49 MG/DL (0.55-1.30); GLOMERULAR FILTRATION RATE 13.7 (>39); POTASSIUM SERUM 4.4 MMOL/L (3.5-5.1)
[2024-12-14] MEDS: metOLazone 5 MG TAB PO SCH (09:22)
[2024-12-14] MEDS: CEFDINIR 300 MG CAP (OMNICEF) PO SCH (13:01)
[2024-12-14] MEDS: allopurinoL 100 MG TAB PO SCH (13:01)
[2024-12-14] MEDS: diphenhydrAMINE 25MG CAP PO PRN (21:41)
[2024-12-14] MEDS: NYSTATIN 100,000 UNITS/GM TOPICAL PWD 15GM TOP SCH (21:41)
[2024-12-15 04:00] VITALS: BP 132/68; TEMP 97.3; O2SAT 95
[2024-12-15 06:29] LABS: BASO # 0.1 10^3/uL (0.0-0.2); BASO % 0.7 % (0.0-1.0); EOS # 1.1 10^3/uL (0.0-0.5); EOS % 12.9 % (0.0-3.0); HEMATOCRIT 34.5 % (36.0-47.0); HEMOGLOBIN 11.1 g/dl (12.0-15.5); LYMPH # 1.1 10^3/uL (1.5-5.0); LYMPH % 12.4 % (24.0-44.0); MEAN CORPUSCULAR HEMOGLOBIN 29.9 pg (27.0-33.0); MEAN CORPUSCULAR HGB CONC 32.2 g/dl (32.0-36.5); MONO # 0.7 10^3/uL (0.0-0.8); NEUTROPHILS # 5.5 10^3/uL (1.5-8.5); NEUTROPHILS % 64.7 % (36.0-66.0); PLATELET COUNT, AUTOMATED 222 10^3/uL (150-450); RED BLOOD COUNT 3.71 10^6/uL (4.00-5.40); WHITE BLOOD COUNT 8.5 10^3/uL (4.0-10.0)
[2024-12-15 06:40] LABS: INR 1.9
[2024-12-15 06:54] LABS: CALCIUM LEVEL 8.6 MG/DL (8.3-10.6); CREATININE FOR GFR 3.68 MG/DL (0.55-1.30); GLOMERULAR FILTRATION RATE 12.9 (>39)
[2024-12-15 10:04] VITALS: BP 127/68
[2024-12-15] MEDS ORDERED: NYST1POW3 TOP (11:13)
[2024-12-15] MEDS ORDERED: ALLO100T PO (11:13)
[2024-12-15] MEDS ORDERED: CEFD300CAP PO (11:13)
[2024-12-15] MEDS ORDERED: METO5TA PO (11:13)
[2024-12-15 12:00] VITALS: BP 124/68; TEMP 97.3; O2SAT 98
[2024-12-16] MEDS ORDERED: ALLO10TA PO (17:37)
== END 2024-12-15 12:48 | disposition home health service (06) | DRG 683 ==
LOC: M ED 08:26 → EDBD 08:26 → M ED INP 12:29 → M PCU 22:21 → M MSPAV 12-14 17:58
PROVIDERS: ADMIT Internal Medicine; ATTEND Internal Medicine
DX: N17.9 Acute kidney failure, unspecified (principal); I50.32 Chronic diastolic (congestive) heart failure; E87.20 Acidosis, unspecified; I48.20 Chronic atrial fibrillation, unspecified; N39.0 Urinary tract infection, site not specified; L97.929 Non-pressure chronic ulcer of unspecified part of left lower leg with unspecified severity; L97.919 Non-pressure chronic ulcer of unspecified part of right lower leg with unspecified severity; N18.4 Chronic kidney disease, stage 4 (severe); I87.2 Venous insufficiency (chronic) (peripheral); M10.9 Gout, unspecified; E55.9 Vitamin D deficiency, unspecified; E87.6 Hypokalemia; R30.0 Dysuria; D53.9 Nutritional anemia, unspecified; E78.5 Hyperlipidemia, unspecified; R60.0 Localized edema; E87.5 Hyperkalemia; D63.1 Anemia in chronic kidney disease; B96.20 Unspecified Escherichia coli [E. coli] as the cause of diseases classified elsewhere; L30.4 Erythema intertrigo; Z66 Do not resuscitate; Z87.891 Personal history of nicotine dependence; Z79.01 Long term (current) use of anticoagulants; Z79.899 Other long term (current) drug therapy; Z86.73 Personal history of transient ischemic attack (TIA), and cerebral infarction without residual deficits; Z88.8 Allergy status to other drugs, medicaments and biological substances

== ENCOUNTER 2024-12-16 13:59 | Emergency (ER) | payer MEDICARE, MEDICAID ==
[~2024-12-16] VITALS: Ht 154.9 cm; Wt 115.9 kg
[~2024-12-16 13:59] MED LIST changes: +ALLO100T PO; +METO5TA PO; +NYST1POW3 TOP
[2024-12-16 14:02] VITALS: BP 140/81; TEMP 97.1; O2SAT 98
[2024-12-16 15:00] LABS: BASO # 0.1 10^3/uL (0.0-0.2); BASO % 0.7 % (0.0-1.0); EOS # 0.7 10^3/uL (0.0-0.5); EOS % 6.2 % (0.0-3.0); HEMATOCRIT 36.9 % (36.0-47.0); HEMOGLOBIN 11.7 g/dl (12.0-15.5); LYMPH # 1.4 10^3/uL (1.5-5.0); LYMPH % 11.9 % (24.0-44.0); MEAN CORPUSCULAR HEMOGLOBIN 30.1 pg (27.0-33.0); MEAN CORPUSCULAR HGB CONC 31.7 g/dl (32.0-36.5); MEAN CORPUSCULAR VOLUME 94.9 fl (80.0-96.0); MONO % 8.2 % (2.0-8.0); NEUTROPHILS # 8.3 10^3/uL (1.5-8.5); NEUTROPHILS % 71.4 % (36.0-66.0); PLATELET COUNT, AUTOMATED 265 10^3/uL (150-450); RED BLOOD COUNT 3.89 10^6/uL (4.00-5.40); WHITE BLOOD COUNT 11.6 10^3/uL (4.0-10.0)
[2024-12-16 15:15] LABS: INR 2.1; PARTIAL THROMBOPLASTIN TIME 40.5 SECONDS (24.8-34.2); PROTHROMBIN TIME 23.7 SECONDS (12.5-14.5)
[2024-12-16 15:20] LABS: LIPASE 145 U/L (12-53)
[2024-12-16 15:22] LABS: AMYLASE 136 U/L (30-118)
[2024-12-16 15:23] LABS: ALBUMIN 3.2 G/DL (3.2-5.2); ALKALINE PHOSPHATASE 116 U/L (35-104); ALT/SGPT 21 U/L (7.0-40); AST/SGOT 19 U/L (<34); BILIRUBIN,DIRECT < 0.1 MG/DL (<0.4); BILIRUBIN,TOTAL 0.2 MG/DL (0.3-1.2); BLOOD UREA NITROGEN 93 MG/DL (9-23); CALCIUM LEVEL 8.8 MG/DL (8.3-10.6); CARBON DIOXIDE LEVEL 24 MMOL/L (20-31); CHLORIDE LEVEL 102 MMOL/L (98-107); CREATININE FOR GFR 5.72 MG/DL (0.55-1.30); GLOMERULAR FILTRATION RATE 7.8 (>39); GLUCOSE, FASTING 89 MG/DL (74-106); POTASSIUM SERUM 4.6 MMOL/L (3.5-5.1); SODIUM LEVEL 138 MMOL/L (136-145); TOTAL PROTEIN 8.1 G/DL (5.7-8.2)
[2024-12-16] MEDS ORDERED: ALLO10TA PO (17:37)
[2024-12-16] MEDS ORDERED: HOME MED LIST COMPLETE! XX SCH (17:40)
== END 2024-12-16 17:48 | disposition left against medical advice (07) ==
LOC: M ED 13:59
DX: N18.4 Chronic kidney disease, stage 4 (severe) (principal); I51.7 Cardiomegaly; I48.91 Unspecified atrial fibrillation; I45.10 Unspecified right bundle-branch block; Z88.8 Allergy status to other drugs, medicaments and biological substances; Z79.1 Long term (current) use of non-steroidal anti-inflammatories (NSAID); Z79.899 Other long term (current) drug therapy; Z53.9 Procedure and treatment not carried out, unspecified reason

== ENCOUNTER 2025-02-02 09:09 | Inpatient (IN) | payer MEDICARE, MEDICAID ==
[~2025-02-02] VITALS: Ht 154.9 cm; Wt 108.2 kg
[~2025-02-02 09:09] MED LIST changes: +ALLO10TA PO
[2025-02-02 09:51] LABS: BASO % 0.4 % (0.0-1.0); EOS # 0.4 10^3/uL (0.0-0.5); EOS % 4.3 % (0.0-3.0); HEMATOCRIT 33.5 % (36.0-47.0); HEMOGLOBIN 10.5 g/dl (12.0-15.5); LYMPH # 0.8 10^3/uL (1.5-5.0); LYMPH % 8.9 % (24.0-44.0); MEAN CORPUSCULAR HEMOGLOBIN 30.3 pg (27.0-33.0); MEAN CORPUSCULAR HGB CONC 31.3 g/dl (32.0-36.5); MEAN CORPUSCULAR VOLUME 96.5 fl (80.0-96.0); MONO # 0.6 10^3/uL (0.0-0.8); MONO % 6.7 % (2.0-8.0); NEUTROPHILS # 6.8 10^3/uL (1.5-8.5); NEUTROPHILS % 79.1 % (36.0-66.0); PLATELET COUNT, AUTOMATED 178 10^3/uL (150-450); RED BLOOD COUNT 3.47 10^6/uL (4.00-5.40); WHITE BLOOD COUNT 8.6 10^3/uL (4.0-10.0)
[2025-02-02 10:10] LABS: LIPASE 84 U/L (12-53)
[2025-02-02 10:12] LABS: ALBUMIN 3.1 G/DL (3.2-5.2); ALKALINE PHOSPHATASE 89 U/L (35-104); ALT/SGPT 14 U/L (7.0-40); AST/SGOT 14 U/L (<34); BILIRUBIN,DIRECT 0.1 MG/DL (<0.4); BILIRUBIN,TOTAL 0.3 MG/DL (0.3-1.2); BLOOD UREA NITROGEN 91 MG/DL (9-23); CALCIUM LEVEL 8.5 MG/DL (8.3-10.6); CARBON DIOXIDE LEVEL 20 MMOL/L (20-31); CHLORIDE LEVEL 113 MMOL/L (98-107); CK-MB VALUE MASS < 1.0 NG/ML (<3.6); CREATININE FOR GFR 3.91 MG/DL (0.55-1.30); GLUCOSE, FASTING 107 MG/DL (74-106); POTASSIUM SERUM 5.3 MMOL/L (3.5-5.1); SODIUM LEVEL 145 MMOL/L (136-145); TOTAL PROTEIN 7.6 G/DL (5.7-8.2)
[2025-02-02 10:14] LABS: FREE T4 1.26 NG/DL (0.89-1.76); THYROID STIMULATING HORMONE 1.158 uIU/ML (0.55-4.78)
[2025-02-02 10:17] LABS: CPK CREATINE PHOSPHOKINASE 44 U/L (34-145); MB/CK RELATIVE INDEX 2.27 (< OR =4)
[2025-02-02 13:06] LABS: KETONE, URINE AUTO RFX NEGATIVE (NEGATIVE); NITRITE, URINE AUTO RFX NEGATIVE (NEGATIVE); RBC, URINE AUTO RFX 7 /HPF (0-3); SQUAM EPITHELIAL CELL UR AURFX 5 /HPF (0-6)
[2025-02-02 13:10] LABS: LEUKOCYTE ESTERASE UR AUTO RFX 3+ (NEGATIVE); WBC, URINE AUTO RFX TNTC /HPF (0-3)
[2025-02-02 13:58] LABS: CK-MB VALUE MASS 1.3 NG/ML (<3.6)
[2025-02-02 14:00] LABS: MB/CK RELATIVE INDEX 2.88 (< OR =4)
[2025-02-02] MEDS: cefTRIAXone SOD 1 GM in DEXTROSE 5% (D5W) ADV/MINI-BAG 50 ML IV ONE (14:00)
[2025-02-02 15:10] LABS: INR 1.09; PROTHROMBIN TIME 14.4 SECONDS (12.5-14.5)
[2025-02-02 16:58] LABS: MAGNESIUM LEVEL 2.6 MG/DL (1.8-2.4); PHOSPHORUS LEVEL 5.5 MG/DL (2.4-5.1)
[2025-02-02] MEDS ORDERED: HOME MED LIST COMPLETE! XX SCH (17:00)
[2025-02-02] MEDS ORDERED: WARFARIN SOD 5MG TAB PO SCH ×2 (17:00→18:00)
[2025-02-02] MEDS: FUROSEMIDE 100MG/10ML VIAL IV ONE (17:12)
[2025-02-02] MEDS: FUROSEMIDE injection 100 MG, VIAL 2 BAG 13MM ADAPTER 1 EACH in NS 100 ML IV SCH (17:12)
[2025-02-02 17:41] VITALS: BP 157/78; TEMP 98.4; O2SAT 100
[2025-02-02 20:00] VITALS: BP 157/78; PULSE 82; O2SAT 100
[2025-02-02] MEDS: WARFARIN SOD 7.5MG TAB PO SCH (20:03)
[2025-02-02] MEDS: DOCUSATE SODIUM 100MG CAPSULE PO SCH (20:04)
[2025-02-02] MEDS: PERMETHRIN 5% CREAM 60 GM TOP ONE (20:06)
[2025-02-02 20:16] VITALS: BP 149/66; TEMP 96.6; O2SAT 100
[2025-02-02 23:52] VITALS: BP 120/78; TEMP 97.3; O2SAT 98
[2025-02-03] VITALS (7 sets, daily range): BP systolic 105–145; BP diastolic 51–85; PULSE 82; TEMP 96.8–98.6; O2SAT 95–99
[2025-02-03 06:29] LABS: BASO % 0.3 % (0.0-1.0); EOS # 0.6 10^3/uL (0.0-0.5); EOS % 6.3 % (0.0-3.0); HEMATOCRIT 30.5 % (36.0-47.0); HEMOGLOBIN 9.8 g/dl (12.0-15.5); LYMPH # 0.8 10^3/uL (1.5-5.0); LYMPH % 8.1 % (24.0-44.0); MEAN CORPUSCULAR HEMOGLOBIN 30.5 pg (27.0-33.0); MEAN CORPUSCULAR HGB CONC 32.1 g/dl (32.0-36.5); MONO # 0.7 10^3/uL (0.0-0.8); MONO % 7.4 % (2.0-8.0); NEUTROPHILS # 7.6 10^3/uL (1.5-8.5); NEUTROPHILS % 77.4 % (36.0-66.0); PLATELET COUNT, AUTOMATED 169 10^3/uL (150-450); RED BLOOD COUNT 3.21 10^6/uL (4.00-5.40); WHITE BLOOD COUNT 9.9 10^3/uL (4.0-10.0)
[2025-02-03 06:41] LABS: INR 1.19; PROTHROMBIN TIME 15.4 SECONDS (12.5-14.5)
[2025-02-03 06:59] LABS: ALBUMIN 2.7 G/DL (3.2-5.2); CALCIUM LEVEL 8.2 MG/DL (8.3-10.6); CREATININE FOR GFR 3.94 MG/DL (0.55-1.30); GLOMERULAR FILTRATION RATE 11.9 (>39); MAGNESIUM LEVEL 2.4 MG/DL (1.8-2.4); PHOSPHORUS LEVEL 5.4 MG/DL (2.4-5.1); POTASSIUM SERUM 4.8 MMOL/L (3.5-5.1)
[2025-02-03] MEDS ORDERED: allopurinoL 300 MG TAB PO SCH (09:00)
[2025-02-03] MEDS: CALCITRIOL 0.25 MCG CAP (S0169) PO SCH (09:42)
[2025-02-03] MEDS: METOPROLOL TARTRATE 100MG TAB PO SCH (09:43)
[2025-02-03] MEDS ORDERED: NYSTATIN 100,000 UNITS/GM TOPICAL PWD 15GM TOP PRN (11:15)
[2025-02-03] MEDS: cefTRIAXone SOD 1 GM in DEXTROSE 5% (D5W) ADV/MINI-BAG 50 ML IV SCH (14:00)
[2025-02-03] MEDS: ACETAMINOPHEN 325 MG TAB PO PRN (21:07)
[2025-02-04] VITALS (8 sets, daily range): BP systolic 105–139; BP diastolic 53–63; PULSE 82; TEMP 97–98.6; O2SAT 95–100
[2025-02-04 06:19] LABS: BASO % 0.4 % (0.0-1.0); EOS # 0.8 10^3/uL (0.0-0.5); EOS % 10.4 % (0.0-3.0); HEMATOCRIT 32.4 % (36.0-47.0); HEMOGLOBIN 10.1 g/dl (12.0-15.5); MEAN CORPUSCULAR HEMOGLOBIN 29.5 pg (27.0-33.0); MEAN CORPUSCULAR HGB CONC 31.2 g/dl (32.0-36.5); MEAN CORPUSCULAR VOLUME 94.7 fl (80.0-96.0); MONO # 0.7 10^3/uL (0.0-0.8); MONO % 8.8 % (2.0-8.0); NEUTROPHILS # 4.9 10^3/uL (1.5-8.5); NEUTROPHILS % 65.9 % (36.0-66.0); PLATELET COUNT, AUTOMATED 161 10^3/uL (150-450); RED BLOOD COUNT 3.42 10^6/uL (4.00-5.40); WHITE BLOOD COUNT 7.4 10^3/uL (4.0-10.0)
[2025-02-04 06:30] LABS: INR 1.17; PROTHROMBIN TIME 15.2 SECONDS (12.5-14.5)
[2025-02-04 06:41] LABS: ALBUMIN 2.6 G/DL (3.2-5.2); CALCIUM LEVEL 8.9 MG/DL (8.3-10.6); CREATININE FOR GFR 3.99 MG/DL (0.55-1.30); GLOMERULAR FILTRATION RATE 11.8 (>39); MAGNESIUM LEVEL 2.3 MG/DL (1.8-2.4); PERCENT SATURATION 13.5 % (13.2-45.0); PHOSPHORUS LEVEL 6.2 MG/DL (2.4-5.1); POTASSIUM SERUM 4.2 MMOL/L (3.5-5.1)
[2025-02-04 06:42] LABS: FERRITIN 111.7 NG/ML (7.3-270.7)
[2025-02-04] MEDS: diphenhydrAMINE CREAM 30GM TOP PRN (14:17)
[2025-02-04] MEDS: (RENVELA) SEVELAMER **CARBONate** 800 MG TAB PO SCH (17:54)
[2025-02-04] MEDS: WARFARIN SOD 5MG TAB PO SCH (17:55)
[2025-02-05 03:33] VITALS: BP 119/61; TEMP 97.4; O2SAT 98
[2025-02-05 06:17] LABS: BASO % 0.5 % (0.0-1.0); EOS # 0.9 10^3/uL (0.0-0.5); EOS % 12.7 % (0.0-3.0); HEMATOCRIT 35.5 % (36.0-47.0); HEMOGLOBIN 10.8 g/dl (12.0-15.5); LYMPH # 0.9 10^3/uL (1.5-5.0); LYMPH % 12.2 % (24.0-44.0); MEAN CORPUSCULAR HEMOGLOBIN 29.5 pg (27.0-33.0); MEAN CORPUSCULAR HGB CONC 30.4 g/dl (32.0-36.5); MONO # 0.7 10^3/uL (0.0-0.8); MONO % 9.6 % (2.0-8.0); NEUTROPHILS # 4.7 10^3/uL (1.5-8.5); NEUTROPHILS % 64.2 % (36.0-66.0); PLATELET COUNT, AUTOMATED 167 10^3/uL (150-450); RED BLOOD COUNT 3.66 10^6/uL (4.00-5.40); WHITE BLOOD COUNT 7.3 10^3/uL (4.0-10.0)
[2025-02-05 06:28] LABS: INR 1.22; PROTHROMBIN TIME 15.7 SECONDS (12.5-14.5)
[2025-02-05 06:43] LABS: ALBUMIN 2.6 G/DL (3.2-5.2); CREATININE FOR GFR 3.99 MG/DL (0.55-1.30); GLOMERULAR FILTRATION RATE 11.8 (>39); PHOSPHORUS LEVEL 6.3 MG/DL (2.4-5.1); POTASSIUM SERUM 3.8 MMOL/L (3.5-5.1)
[2025-02-05 08:19] VITALS: BP 122/74; TEMP 97.5; O2SAT 96
[2025-02-05 11:50] VITALS: BP 129/67; TEMP 97.8; O2SAT 96
[2025-02-05] MEDS: CEFDINIR 300 MG CAP (OMNICEF) PO ONE (12:29)
[2025-02-05 16:06] VITALS: BP 119/62; TEMP 97.6; O2SAT 97
[2025-02-05 19:58] VITALS: BP 117/58; TEMP 97.2; O2SAT 99
[2025-02-05 23:53] VITALS: BP 118/57; TEMP 97.4; O2SAT 98
[2025-02-06 03:43] VITALS: BP 129/60; TEMP 97; O2SAT 97
[2025-02-06 05:24] VITALS: O2SAT 98
[2025-02-06 06:44] LABS: BASO # 0.1 10^3/uL (0.0-0.2); BASO % 0.6 % (0.0-1.0); EOS # 1.1 10^3/uL (0.0-0.5); EOS % 12.9 % (0.0-3.0); HEMATOCRIT 35.8 % (36.0-47.0); MEAN CORPUSCULAR HEMOGLOBIN 29.6 pg (27.0-33.0); MEAN CORPUSCULAR HGB CONC 30.7 g/dl (32.0-36.5); MEAN CORPUSCULAR VOLUME 96.5 fl (80.0-96.0); MONO # 0.7 10^3/uL (0.0-0.8); MONO % 7.9 % (2.0-8.0); NEUTROPHILS # 5.4 10^3/uL (1.5-8.5); NEUTROPHILS % 65.9 % (36.0-66.0); PLATELET COUNT, AUTOMATED 179 10^3/uL (150-450); RED BLOOD COUNT 3.71 10^6/uL (4.00-5.40); WHITE BLOOD COUNT 8.2 10^3/uL (4.0-10.0)
[2025-02-06 07:04] LABS: INR 1.46
[2025-02-06 07:22] LABS: ALBUMIN 2.8 G/DL (3.2-5.2); CALCIUM LEVEL 7.6 MG/DL (8.3-10.6); CREATININE FOR GFR 4.03 MG/DL (0.55-1.30); GLOMERULAR FILTRATION RATE 11.6 (>39); PHOSPHORUS LEVEL 6.2 MG/DL (2.4-5.1)
[2025-02-06 08:00] VITALS: BP_SYST 131; BP_SYST 176; BP_DIAS 102; BP_DIAS 63; TEMP 98.3; TEMP 98.5; O2SAT 97; O2SAT 98
[2025-02-06] MEDS: CEFDINIR 300 MG CAP (OMNICEF) PO ONE (09:37)
[2025-02-06] MEDS: diphenhydrAMINE 50MG/ML VIAL IV PRN (09:37)
[2025-02-06] MEDS: allopurinoL 300 MG TAB PO SCH (09:38)
[2025-02-06 09:39] VITALS: BP 131/63
[2025-02-06] MEDS: FUROSEMIDE 80 MG TAB PO SCH (09:40)
[2025-02-06 12:00] VITALS: BP 132/79; TEMP 98; O2SAT 97
[2025-02-06] MEDS ORDERED: FURO80TA2 PO (13:04)
[2025-02-06] MEDS ORDERED: RENV2TAB PO (13:04)
[2025-02-06] MEDS ORDERED: BENA2CRE3 TOP (13:07)
[2025-02-06] MEDS ORDERED: HYDR-3363 PO (13:07)
== END 2025-02-06 14:35 | disposition home health service (06) | DRG 291 ==
LOC: EDBD 09:09 → M ED 09:09 → M ED INP 15:35 → M PCU 17:41
PROVIDERS: ADMIT Internal Medicine; ATTEND Internal Medicine
PROC: B246ZZZ Ultrasonography of Right and Left Heart (ICD-10-PCS; principal; 2025-02-02)
DX: I13.2 Hypertensive heart and chronic kidney disease with heart failure and with stage 5 chronic kidney disease, or end stage renal disease (principal); I50.33 Acute on chronic diastolic (congestive) heart failure; N18.5 Chronic kidney disease, stage 5; I48.20 Chronic atrial fibrillation, unspecified; N17.9 Acute kidney failure, unspecified; E87.0 Hyperosmolality and hypernatremia; N25.81 Secondary hyperparathyroidism of renal origin; N39.0 Urinary tract infection, site not specified; E78.5 Hyperlipidemia, unspecified; L29.89 Other pruritus; I87.2 Venous insufficiency (chronic) (peripheral); M10.9 Gout, unspecified; E83.39 Other disorders of phosphorus metabolism; B96.20 Unspecified Escherichia coli [E. coli] as the cause of diseases classified elsewhere; I27.20 Pulmonary hypertension, unspecified; D50.9 Iron deficiency anemia, unspecified; I35.0 Nonrheumatic aortic (valve) stenosis; E87.5 Hyperkalemia; Z66 Do not resuscitate; Z79.01 Long term (current) use of anticoagulants; Z79.899 Other long term (current) drug therapy; Z88.8 Allergy status to other drugs, medicaments and biological substances; Z86.73 Personal history of transient ischemic attack (TIA), and cerebral infarction without residual deficits

== ENCOUNTER → 2025-07-06 | Outpatient (REF) ==
[~2025-07-06] MED LIST changes: +ATIV1TAB10 PO; +BENA2CRE3 TOP; +FERR325T19 PO; +HYDR-3363 PO; +HYOS125TA PO; +JANT5TAB PO; +MORP1SOL5 PO; +RENV2TAB PO; +SODI325T9 PO; +VELT1POW PO
[2025-07-06 11:44] LABS: APPEARANCE, URINE TURBID (CLEAR); BACTERIA, URINE AUTO 2+ (NEGATIVE); BILIRUBIN, URINE AUTO NEGATIVE (NEGATIVE); BLOOD, URINE BLOOD 2+ (NEGATIVE); GLUCOSE, URINE (UA) AUTO NEGATIVE (NEGATIVE); KETONE, URINE AUTO NEGATIVE (NEGATIVE); LEUKOCYTE ESTERASE, URINE AUTO 3+ (NEGATIVE); NITRITE, URINE AUTO POSITIVE (NEGATIVE); PROTEIN, URINE AUTO 2+ mg/dL (NEGATIVE); RBC, URINE AUTO 17 /HPF (0-3); SPECIFIC GRAVITY URINE AUTO 1.012 (1.002-1.035); SQUAMOUS EPITHELIAL CELL UR AU 12 /HPF (0-6); UROBILINOGEN, URINE AUTO 0.2 mg/dL (0.0-2.0); WBC, URINE AUTO TNTC /HPF (0-3)
== END ==
LOC: M LAB REF 10:15
DX: N39.0 Urinary tract infection, site not specified (principal)